=== PATIENT | male | born 1955 | race Caucasian/White ===

== ENCOUNTER 2019-11-09 14:28 | Outpatient (CLI) | payer MEDICARE, OTHER, SELFPAY ==
--- NOTE | 2019-11-09 14:44 | MR_ITS ---
WS: [id number] MRI HEAD WITH CONTRAST TECHNIQUE: Sagittal T1, T2 axial, T2 axial FLAIR, axial susceptibility weighted imaging, axial diffus ion weighted images, and coronal T2 images were obtained. Pre and post-T1 axial and post T1 coronal i mages. ADC and FSPGR images. CLINICAL INFORMATION: DIZZINESS COMPARISON: None. FINDINGS: No evidence of restricted diffusion to suggest acute ischemia. Ventricular system and basal cisterns are patent. Mild small vessel changes. Mild parenchymal volume loss. Normal posterior fossa. Normal v ascular flow voids at the skull base. No extra-axial fluid collections. Paranasal sinuses and mastoid air cells are well aerated. Normal optic chiasm and pituitary infundibulum. No hemosiderin on susceptibly weighted images. No abn ormal gadolinium enhancement. Normal dural venous sinuses. Visualized IACs are normal in appearance. No visualized IAC or CP angle mass. MR/MR head wo/w con [id number] IMPRESSION: 1. No evidence restricted diffusion to suggest acute ischemia. 2. Mild small vessel changes. Mild to moderate parenchymal volume loss. 3. Paranasal sinuses and mastoid air cells are well aerated. 4. No abnormal gadolinium enhancement. 5. Visualized IACs are normal in appearance. No CP angle mass. 6. No other significant findings.
== END 2019-11-09 14:29 | disposition home or self-care (01) ==
LOC: RADWPI 14:36
PROVIDERS: Family Provider Family Medicine; PCP Family Medicine; Visit Provider Family Medicine
DX: R42 Dizziness and giddiness (principal)
CPT/HCPCS: 70553; A9579

== ENCOUNTER → 2019-12-09 09:52 | Outpatient (BNVA) | payer MEDICARE, OTHER, SELFPAY | PROVIDERS: Family Provider Family Medicine; PCP Family Medicine; Referring Provider Family Medicine; Visit Provider Urology | DX: N41.1 Chronic prostatitis (principal); N40.1 Benign prostatic hyperplasia with lower urinary tract symptoms; N53.14 Retrograde ejaculation | CPT/HCPCS: 81001 ==

== ENCOUNTER 2023-09-03 12:35 | Outpatient (CLI) | payer MEDICARE, SELFPAY ==
--- NOTE | 2023-09-03 | ECG_ITS ---
[facility] Test Date: 2023-09-03 Pat Name: Scout Nunez Department: Room: Gender: Male Workforce Planner: Mila David : 1955 Requested By: Gilson Warner Order Number: [id number] Kelly MD: Adelso Conley M.D. Interpretive Statements NAME OF STUDY: TREADMILL STRESS TEST INDICATION: [Chest Pain, ] EXERCISE DATA: The patient was exercised by Guy protocol. Baseline heart rate was 67 beats per minute. Baseline blood pressure was 136/69 millimeters of mercury. Maximal predicted heart rate was 153 beats per minute. Maximum heart rate achieved was 141, which was 92% of the maximum predicted heart rate. Maximum blood pressure was 155/84 millimeters of mercury. Total exercise time was 6 minutes. Maximum METs achieved was 7. The reason for ending the test was maximal effort achieved. The patient complained of chest pain and shortness of breath during the stress test, which then resolved at the end of the test. ELECTROCARDIOGRAM: BASELINE: Showed sinus rhythm, normal axis, no significant ST-T changes at the baseline noted. [] EXERCISE: At the peak exercise level, [] horizontal 1-[address] depressions seen in leads V3-V5. [] RECOVERY: During the recovery period, heart rate dropped appropriately. PVCs were noted. [] CONCLUSION: 1. Exercise capacity is fair 2. Heart rate response was appropriate 3. Blood pressure response was appropriate 4. Symptoms of chest pain and shortness of breath during exercise 5. Stress test is abnormal with 1-2mm ST depressions seen on leads V3-V5. Blanchard score of -5 consistent with moderate risk stress test. Electronically Signed On 09-09-2023 7:42:29 CDT by Adelso Conley M.D. [email or web address]
[2023-09-03 13:40] VITALS: BMI 29.5
[2023-09-03 14:05] VITALS: BP 132/78; PULSE 97
== END 2023-09-03 12:36 | disposition home or self-care (01) ==
PROVIDERS: PCP Family Medicine; Visit Provider Family Medicine
DX: R07.9 Chest pain, unspecified (principal); R06.02 Shortness of breath; R94.39 Abnormal result of other cardiovascular function study
CPT/HCPCS: 93017

== ENCOUNTER → 2023-09-18 13:21 | Outpatient (BNVA) | payer MEDICARE, SELFPAY | PROVIDERS: PCP Family Medicine; Referring Provider Family Medicine; Visit Provider Internal Medicine Cardiovascular Disease | DX: R07.1 Chest pain on breathing (principal); R94.39 Abnormal result of other cardiovascular function study; I10 Essential (primary) hypertension; E78.5 Hyperlipidemia, unspecified; Z87.891 Personal history of nicotine dependence | CPT/HCPCS: 99205 ==

== ENCOUNTER 2023-09-24 10:15 | Outpatient (CLI) | payer MEDICARE, SELFPAY ==
[2023-09-24 10:35] LABS: Basophils % 0.3 %; Eosinophils # 0.1 10^3/uL (0.0-0.8); Eosinophils % 1.8 %; Hematocrit 39.6 % (37-53); Lymphocytes # 1.6 10^3/uL (0.8-4.8); Lymphocytes % 20.5 %; Mean Corpuscular HGB Conc 33.1 g/dL (30-55); Mean Corpuscular Hemoglobin 29.9 pg (27-33); Mean Corpuscular Volume 90.4 fl (82-101); Mean Platelet Volume 9.6 fL (7.4-10.4); Monocytes # 0.5 10^3/uL (0.2-0.9); Monocytes % 6.4 %; Neutrophils # 5.46 10^3/uL (1.8-7.7); Neutrophils % 70.7 %; Nucleated Red Blood Cells % 0 %; Platelet Count 263 10^3/cmm (157-399); Red Blood Count 4.38 10^6/uL (3.85-5.65); Red Cell Distribution Width 12.3 % (12.1-15.1); White Blood Count 7.71 10^3/uL (3.29-11.43)
[2023-09-24 10:48] LABS: INR 1.04 (0.8-1.2)
[2023-09-24 10:52] LABS: Anion Gap 14.2 (5-19); Blood Urea Nitrogen 19 mg/dL (8-23); Calcium 8.9 mg/dL (8.5-10.5); Carbon Dioxide 23 mmol/L (22-29); Chloride 108 mmol/L (98-107); Glomerular Filtration Rate 74.5 mL/min (90-130); Glucose 98 mg/dL (65-115); Osmolality Calculated 294 mOsm/kg (285-295); Potassium 4.2 mmol/L (3.5-5.1); Sodium 141 mmol/L (136-145)
== END 2023-09-24 10:16 | disposition home or self-care (01) ==
LOC: LAB 10:18
PROVIDERS: PCP Family Medicine; Visit Provider Internal Medicine Cardiovascular Disease
DX: R06.02 Shortness of breath (principal); Z79.01 Long term (current) use of anticoagulants; I25.118 Atherosclerotic heart disease of native coronary artery with other forms of angina pectoris; I48.91 Unspecified atrial fibrillation
CPT/HCPCS: 36415; 80048; 85025; 85610; 86850; 86900

== ENCOUNTER 2023-10-01 07:28 | Outpatient (CLI) | payer MEDICARE, SELFPAY ==
[2023-10-01] VITALS (25 sets, daily range): BP systolic 115–143; BP diastolic 58–80; PULSE 56–95; RESP 11–25; TEMP 36.8–36.9; O2SAT 94–99; BMI 29.5
--- NOTE | 2023-10-01 07:30 | XACV_ITS ---
Exam Room: 2 Ht: 175 cm Wt: 91 kg BSA: 2.12 m2 Gender: Male : 1955 Exam Priority: Routine Procedure(s): Procedure Description: Diagnostic procedure Procedure Description: PCI procedure Procedure Description: Left Heart Catheterization Procedure Description: Left ventriculography Procedure Description: Drug Eluting Coronary Stent Procedure Description: PTCA Procedure Description: Coronary Angiography Valeriy WHITLEY; Diagnostic Cath Status: Elective Diagnostic Findings * The left main is a medium caliber short vessel with no significant stenotic lesions. * The left anterior descending artery is a medium caliber vessel which appears to wrap around the LV apex minimally. Near the ostium, there is a 30% narrowing in the artery. The mid LAD was found to have 20 to 30% diffuse irregular narrowing. No other significant stenotic lesions were noted. The artery gives off multiple small diagonal branches. The first and second diagonal branches are found to have around 50-60% ostial narrowing. The third diagonal branch was found to have around 40% ostial narrowing. No other significant stenotic lesions were noted.. * The intermedius artery was found to be totally occluded proximally. There was minimal right left collaterals, filling of the distal segment of this artery, seen during the right coronary injection. * The left circumflex artery is a medium caliber nondominant vessel with a minimal ostial narrowing. No other significant stenotic lesions were noted. * The right coronary artery is a medium caliber dominant vessel which was found to have a high posterior takeoff. Minimal intimal irregularities are noted in the midsegment. No significant stenotic lesions were noted. PCI Status: Elective PCI LVEF Assessed: Yes PCI Indication: New Onset Angina <= 2 months Interventional Findings * The ramus intermedius is occluded. It appears there is some thrombus in the proximal portion. There was also some collaterals noted from the right coronary artery. There is a 60% stenosis of the proximal LAD. A wire was easily placed into the ramus and subsequently balloon angioplasty performed on the ramus intermedius. It was then stented with a 2.25 x 30 mm stent. This provided an excellent angiographic result. There was some slight worsening of the lesion in the LAD after the ramus stent was placed. Decision for PCI with Surgical Consult: No PCI for Multi-vessel Disease: No Conclusions 1. 67-year-old white male with history of hypertension, dyslipidemia, is present with complaints of chest pain and dyspnea on exertion along with generalized weakness. Abnormal stress test suggesting inferolateral wall ischemia. In view of the patient's ongoing symptoms with a significant functional limitations, in order to further evaluate his coronary status, a cardiac on exertion was recommended. Patient underwent left heart catheterization with left and right coronary angiogram and LV angiogram today. The findings are as follows. 2. Total occlusion of the intermedius artery proximally with faint right to left collaterals. Mild diffuse disease the other vessels. Diminished LV ejection fraction of 45%. LVEDP of 17 mmHg. Moderate hypokinesia of the mid and apical anterior and apical inferior wall segments. 3. I reviewed and discussed the cardiac catheterization data with the Dr. Silver. It was thought to be appropriate to consider PCI of the intermedius artery lesion. Dr. Silver took cover further management of this patient at this point. Diagnostic RX Recommendation: PCI w/o planned CABG Ventriculography Ejection Fraction: 45.0 % LV EDP: 17 mmHg Left Ventriculography Findings: * The LV gram was performed in the WATSON projection. There is moderate hypokinesia of the mid and apical anterior and apical inferior wall segments. LV ejection fraction was around 45%. The LVEDP was 17 mmHg. Pressures Phase:Rest AO : 99 / 55 ( 72 ) @ 9:46:00 AM 76 / 59 ( 68 ) @ 9:48:00 AM 80 / 61 ( 70 ) @ 9:51:00 AM 106 / 52 ( 73 ) @ 10:01:00 AM 107 / 53 ( 74 ) @ 10:01:00 AM 145 / 74 ( 90 ) @ 10:03:00 AM 89 / 53 ( 72 ) @ 10:21:00 AM 89 / 66 ( 76 ) @ 10:25:00 AM LV : 114 / -4 / 17 @ 10:00:00 AM 113 / -2 / 18 @ 10:01:00 AM 113 / -3 / 17 @ 10:01:00 AM Valves Phase:DefaultPhase AV : 13.0 @ 9:40:28 AM AV Mean Gradient: 7.0 @ 9:40:28 AM Clinical Evaluation EBL: 5mL-10mL Procedural Details Procedure Consent Obtained. Pre-Procedure Time Out. Identified patient by full name and date of as verbalized by the patient/guarantor. Does the consent match the physician's order: Yes. Accurate & Complete Informed Consent: Yes. Inpatient/Outpatient History & Physical on Chart: Yes. If H&P is completed, is and addenduem needed: No; If yes, is the addendum complete: N/A. Relevant Radiology Images available: Yes. Visualize and Verify Site with Patient/Guarantor: N/A. Pre-op teaching completed and patient verbalized understanding. The risks, benefits, and alternatives of sedation and/or procedure were discussed by physician. The patient agrees to continue. Procedure started. Current Diagnosis : Chest Pain. [facility] Clinical Fraility Score: 3: Managing Well. Discount Clerk Indications: Worsening Angina. Chest Pain Symptom Assessment: Typical Angina Symptoms. Correct patient, site and procedure confirmed by cath team. Current diagnosis: Chest Pain. PERRLA. Strong, equal hand editing internship bilaterally. Lungs clear x 5 lobes. IV Site on Arrival: 20 gauge in the left anticubital. IV Fluids: 0.9% NaCl at KVO. 0 mL infused prior to labor law professor. Pre Procedural Pulses: right radial was 3+. Oxygen started at 2liters/min via nasal canula. right groin was prepped with chloroprep then draped in the usual sterile fashion. right radial was prepped with chloroprep then draped in the usual sterile fashion. Physician notified. Baseline sample Acquired. HR: 80 BPM. Physician arrived. Physician scrubbed in. Immediate Pre-Procedure Time Out. Correct Patient: Yes; Correct Procedure: Yes; Correct Site: Yes; Correct Patient Position: Yes; Correct Supplies: Yes; Dried Flammable Prep: Yes; Blood Products Available: N/A;. Lidocaine 1% infiltrated to the right radial. Arterial access obtained. A 5 martiniquais Theron catheter in over wire. Multiple views taken of left coronary artery. Catheter redirected to the RCA. Catheter removed over the exchange wire. A 5 martiniquais JR4 catheter in over wire. Multiple views taken of right coronary artery. Dr. Silver called to review films. Catheter removed over the exchange wire. A 5 martiniquais Angled Pig catheter in over wire. EDP Sample taken: LV 114/-5,17; HR: 72 BPM; SpO2: 96%. Dr. Silver arrived. LV gram performed in WATSON @ 10 mL/second for a total of 30 mL. EDP Sample taken: LV 113/-3,18; HR: 73 BPM; SpO2: 96%. Pullback taken: LV 113/-4,17; AO 106/52(73); Mean: 7mmHg, Peak to Peak: 13mmHg, SEP: 22sec/min; HR: 72 BPM; SpO2: 96%. Physician review of cine films. Catheter attached to Heparnized Saline flush at KVO to maintain patency. Dr. Crooks scrubbed out. Dr. Silver scrubbed in. Catheter removed over the exchange wire. 6 martiniquais XB 3.5 guide catheter was inserted over the wire. [place]ucl[place] guidewire was advanced through the guide catheter to lesion in the Ramus. Inflation number : 1 A AB TREK 2.50X12 RX BALLOON was prepped and advanced across the Ramus , then inflated to 8 SAMIA for 0:20 seconds. Results checked. Balloon out. Inflation Number : 2 A ONUR Banegas RIYA 2.25X30 MARAH -Lot Number# [id number] EXP: 03/03/2026 was prepped and advanced across the Ramus. The stent was deployed at 12 SAMIA for 0:25 seconds. Stent balloon out over wire. Results checked. Wire out. Results checked. Guide catheter out. A TR Band was successful obtaining hemostatsis at the Right Radial artery insertion site. Vital chart was stopped. Post Procedure: Pulses reassessed and unchanged. PERRLA. Strong, equal hand editing internship bilaterally. No VTE prophylaxis required. Medication's Wasted: Lidocaine 1% = 18 mL. Medication's Wasted: Heparin = 1000 units. Medication's Wasted: Nitro = 49.8 mcg. Medication's Wasted: Other = Versed 1 mg. Total IV fluids: 300 mL. Post-op diagnosis: Stent to the Ramus. Complications: None. Estimated blood loss: 5mL-10mL. Responsiveness - Normal response to verbal stimuli; alert and oriented, PERRLA. Airway - Unaffected, no intervention required; spontaneous ventilation. Circulation: W/N/L, pulses unchanged. Nausea/Vomiting: No. Procedure completed. Patient transferred by wheelchair to CPRU. Access Site Site: Right Radial artery Sheath Size: 6 Fr Hemostasis Method: TR Band Hemostasis Success: Successful Procedure Medications Start: 8:31 AM Stop: 8:31 AM Medication: Fentanyl Amount: 50 mcg Route: I.V. Start: 8:35 AM Stop: 8:35 AM Medication: Versed Amount: 1 mg Route: I.V. Start: 8:40 AM Stop: 8:40 AM Medication: Versed Amount: 1 mg Route: I.V. Start: 8:42 AM Stop: 8:42 AM Medication: Verapamil Amount: 5 mg Route: I.A. Start: 8:42 AM Stop: 8:42 AM Medication: Nitrogylcerin Amount: 200 mcg Route: I.A. Start: 8:42 AM Stop: 8:42 AM Medication: 0.9% Saline Amount: 250 ml Route: I.V. bolus Start: 8:57 AM Stop: 8:57 AM Medication: Fentanyl Amount: 25 mcg Route: I.V. Start: 8:50 AM Stop: 8:50 AM Medication: Heparin Amount: 5000 units Route: I.V. Start: 9:13 AM Stop: 9:13 AM Medication: Versed Amount: 1 mg Route: I.V. Start: 9:29 AM Stop: 9:29 AM Medication: Fentanyl Amount: 25 mcg Route: I.V. Start: 9:31 AM Stop: 9:31 AM Medication: Plavix Amount: 600 mg Route: P.O. I, the attending physician, have reviewed and verified all procedure medications. Yes, all medications given per verbal order History/Risk Factors Hypertension: Yes Dyslipidemia: Yes Peripheral Arterial Disease (PAD): No Myocardial Infarction (NH): No Obesity: No Renal Disease: No Tobacco Use: Former Prior Interventions PCI: No CABG: No Valve Surgery: No Report Signatures Diagnostic Workflow Finalized by Dr Carmita Crooks MD [facility] on 10/01/2023 10:15 AM Interventional Workflow Finalized by Dr. Loi Silver MD on 10/01/2023 09:46 AM
[2023-10-01] MEDS: diphenhydrAMINE 50 mg Capsule PO (08:04)
[2023-10-01] MEDS: aspirin 325 mg Tablet PO (08:04)
--- NOTE | 2023-10-01 08:15 | W.PM.OPSUD ---
Surgery/Procedure H&P Update DATE OF PROCEDURE: October 01, 2023 DATE H&P PERFORMED: 09/18/23 H&P UPDATE INFORMATION: I have reviewed H&P completed within last 30 days, I have examined patient prior to procedure and No changes to prior documentation PREOP DIAGNOSIS: Suspected CAD PRIMARY INDICATION FOR PROCEDURE: History of hypertension, dyslipidemia, presenting with chest pain and abnormal treadmill exercise stress test. PLANNED PROCEDURE: Operation Date: 10/01/23 08:30 Proposed Procedures p Cardiac Catheterization 62772, R94.39, R07.1(Left) - Carmita Crooks MD PATIENT REASSESSED PRIOR TO SEDATION, WITH NO CHANGE NOTED: Yes PHYSICAL EXAM: alert, oriented x 3, clear to auscultation bilaterally and regular rate & rhythm AIRWAY EVAL/ANESTHESIA PLAN: normal airway, see other exam findings, ASA III, Monitored Anesthesia, Local Anesthesia, Risks, benefits & alternatives of sedation and/or procedure discussed and Patient agrees to continue as planned
--- NOTE | 2023-10-01 09:41 | SUR.PHASEI ---
POST CATH NOTE Received patient from laborer powerhouse. Status post cardiac cateterization/PCI of ramus intermedius artery. Vitals and assessments per flowsheet. Radial band in place. Site is hemostatic and free of hematoma or bleeding. Verbal post cath instctions went over with the patient and the family. They understood well. Call light in place. Informed to call for needs.
--- NOTE | 2023-10-01 10:00 | SUR.PHASEI ---
post cath fluids set at 100 ml/hr post cath per verbal order from dr martinez. Noted.
[2023-10-01] MEDS: sodium chloride 0.9% 1,000 ML 100 ML IV ×2 (11:27→15:23)
--- NOTE | 2023-10-01 13:37 | PC.NURSE ---
received from cardiac center medical and lab director at 1115.report received.pt is alert and awake and oriented x 4.denies pain at present.sr/sb on monitor.right radial tr band on and inflated.right hand is warm to touch and with brisk capillary refill.palpable radial pulse is noted distal to tr band.no hematoma noted.pt instructed in activity restrictions s/p radial artery procedure..and instructed to notify staff for any bleeding,pain,numbness...or for any concerns at all.pt verb understanding of instructions.
[2023-10-02 03:00] VITALS: BP 166/86; PULSE 62; RESP 14; TEMP 36.2; O2SAT 99
[2023-10-02 07:22] VITALS: TEMP 36.2
[2023-10-02 07:57] VITALS: PULSE 66; RESP 16
[2023-10-02] MEDS: gabapentin 300 mg Capsule 600 MG PO (08:17)
[2023-10-02] MEDS: dutasteride 0.5 mg Capsule PO (08:18)
[2023-10-02] MEDS: tamsulosin 0.4 mg Capsule 0.400000000000000022 MG PO (08:18)
[2023-10-02] MEDS: aspirin 81 mg EC Tablet PO (08:18)
[2023-10-02] MEDS: pantoprazole DR 40 mg Tablet PO (08:18)
[2023-10-02] MEDS: baclofen 10 mg Tablet PO (08:18)
[2023-10-02 08:20] VITALS: BP 166/86
[2023-10-02] MEDS: TRAMadol 50 mg Tablet PO (08:20)
[2023-10-02] MEDS: losartan 50 mg Tablet 100 MG PO (08:20)
[2023-10-02] MEDS: amlodipine 5 mg Tablet PO (08:20)
[2023-10-02] MEDS: clopidogrel 75 mg Tablet PO (08:20)
[2023-10-02] MEDS: atorvastatin 40 mg Tablet 20 MG PO (08:21)
--- NOTE | 2023-10-02 09:07 | PM.PN ---
Subjective Subjective: Patient is admitted to hospital following the intervention of the ramus intermedius artery. Patient remained stable throughout the hospital course. No chest pain. Vital signs remained stable. Medications: Medication Review Details: Current Medications Albuterol Sulfate (Albuterol 2.5 Mg/3 Ml Neb) 2.5 mg INHALATION Q6H PRN PRN Reason: Shortness Of Breath Or Wheezing Amlodipine Besylate (Amlodipine 5 Mg Tablet) 5 mg PO DAILY [facility] Last Admin: 10/02/23 08:20 Dose: 5 mg Aspirin (Aspirin 81 Mg Ec Tablet) 81 mg PO DAILY [facility] Last Admin: 10/02/23 08:18 Dose: 81 mg Atorvastatin Calcium (Atorvastatin 40 Mg Tablet) 20 mg PO DAILY [facility] Last Admin: 10/02/23 08:21 Dose: 20 mg Baclofen (Baclofen 10 Mg Tablet) 10 mg PO DAILY [facility] Last Admin: 10/02/23 08:18 Dose: 10 mg Clopidogrel Bisulfate (Clopidogrel 75 Mg Tablet) 75 mg PO DAILY [facility] Last Admin: 10/02/23 08:20 Dose: 75 mg Dutasteride (Dutasteride 0.5 Mg Capsule) 0.5 mg PO DAILY [facility] Last Admin: 10/02/23 08:18 Dose: 0.5 mg Gabapentin (Gabapentin 300 Mg Capsule) 600 mg PO DAILY [facility] Last Admin: 10/02/23 08:17 Dose: 600 mg Sodium Chloride (Sodium Chloride 0.9%) 1,000 mls @ 100 mls/hr IV .Q10H [facility] Last Admin: 10/02/23 05:06 Dose: Not Given Sodium Chloride (Sodium Chloride 0.9%) 1,000 mls @ 100 mls/hr IV .Q10H [facility] Last Admin: 10/01/23 15:23 Dose: Not Given Losartan Potassium (Losartan 50 Mg Tablet) 100 mg PO DAILY [facility] Last Admin: 10/02/23 08:20 Dose: 100 mg Nitroglycerin (Nitroglycerin 0.4 Mg Sublingual Tablet) 0.4 mg SUBLINGUAL Q5M PRN PRN Reason: chest pain Non-Formulary Medication (Fenofibrate Micronized) 67 mg PO DAILY [facility] Last Admin: 10/02/23 08:21 Dose: Not Given Pantoprazole Sodium (Pantoprazole Dr 40 Mg Tablet) 40 mg PO DAILY [facility] Last Admin: 10/02/23 08:18 Dose: 40 mg Tamsulosin HCl (Tamsulosin 0.4 Mg Capsule) 0.4 mg PO DAILY [facility] Last Admin: 10/02/23 08:18 Dose: 0.4 mg Tramadol HCl (Tramadol 50 Mg Tablet) 50 mg PO DAILY [facility] Last Admin: 10/02/23 08:20 Dose: 50 mg Vitals/I&O/Wt Last Vital Signs Temp 97.2 F L 10/02/23 07:22 Pulse 66 10/02/23 07:57 Resp 16 10/02/23 07:57 BP 166/86 10/02/23 08:20 Pulse Ox 99 10/02/23 03:00 O2 Del Method Room Air 10/02/23 07:57 O2 Flow Rate 95 10/02/23 07:57 10/01/23 10/02/23 10/02/23 22:59 06:59 14:59 Intake Total 873.333 / 4980.195 7499 / 2593.333 Balance 873.333 / 5983.250 2328 / 2593.333 Weight last 48 hrs Weight 203 lb 14.4 oz Weight 203 lb 9 oz Weight 200 lb Physical Exam Narrative: GENERAL: The patient is alert and oriented times three. Not in any acute distress. HEENT: No significant pallor, icterus or lymphadenopathy.Oral cavity: There are no mucous membrane lesions. NECK: Trachea appears to be central. No masses noted. No JVD or thyromegaly appreciated. RESPIRATORY: Chest is symmetrical. No intercostals muscle retraction or any accessory muscle activation. There is no chest wall tenderness. Breath sounds are heard bilaterally. No rales or rhonchi heard. No evidence of any consolidation. BREASTS: Deferred. HEART: The heart sounds are normal. No S3 or S4. No significant murmurs. No pericardial rub ABDOMEN: No vessel pulsations or distention. No tenderness. No organomegaly appreciated. Bowel sounds are normally heard. : Deferred. RECTAL: Deferred. LYMPHATIC: No lymphadenopathy noted in the neck. EXTREMITIES: No edema or cyanosis. No clubbing. MUSCULOSKELETAL: No acute joint deformities or swelling SKIN: There are no significant rashes or ecchymosis NEUROPSYCHIATRIC: The patient is alert and oriented x3. Appears to be in a good mood. No tremors or rigidity noted. Data 10/02/23 08:50 Other Labs: Laboratory Last Values Sodium 141 mmol/L (136-145) 10/02/23 08:50 Potassium 3.8 mmol/L (3.5-5.1) 10/02/23 08:50 Chloride 105 mmol/L (98-107) 10/02/23 08:50 Carbon Dioxide 27 mmol/L (22-29) 10/02/23 08:50 Anion Gap 12.8 (5-19) 10/02/23 08:50 BUN 8 mg/dL (8-23) 10/02/23 08:50 Creatinine 1.1 mg/dL (0.7-1.2) 10/02/23 08:50 GFR Calculation 66.8 mL/min (90-130) L 10/02/23 08:50 Glucose 87 mg/dL (65-115) 10/02/23 08:50 Calculated Osmolality 290 mOsm/kg (285-295) 10/02/23 08:50 Calcium 9.1 mg/dL (8.5-10.5) 10/02/23 08:50 A&P Assessment and plan (1) Atherosclerotic heart disease of [place] coronary artery with other forms of angina pectoris: Patient was found to have total occlusion of the intermedius artery with mild to moderate diffuse disease in the other vessels. The intermedius artery was intervened. Excellent results were obtained. Patient remained stable throughout the rest of the hospital course. (2) Benign hypertension: Blood pressure was elevated. Medications were adjusted. (3) Dyslipidemia: Continue on the current medications. Plan Patient is being discharged home today. He will be seen in the clinic in a week. Importance of lifestyle modification, compliance with diet and exercise, etc. were discussed. The option of doing a cardiac rehab also was discussed. After being seen in the office in a week, further management decisions will be made Attestations Medical Necessity Statement*: Discharge home today Coding Level of Care Code 28441 Diagnoses Atherosclerotic heart disease of [place] coronary artery with other forms of angina pectoris I25.118 Benign hypertension I10 Dyslipidemia E78.5
[2023-10-02 09:17] LABS: Anion Gap 12.8 (5-19); Blood Urea Nitrogen 8 mg/dL (8-23); Calcium 9.1 mg/dL (8.5-10.5); Carbon Dioxide 27 mmol/L (22-29); Chloride 105 mmol/L (98-107); Glomerular Filtration Rate 66.8 mL/min (90-130); Glucose 87 mg/dL (65-115); Osmolality Calculated 290 mOsm/kg (285-295); Potassium 3.8 mmol/L (3.5-5.1); Sodium 141 mmol/L (136-145)
--- NOTE | 2023-10-02 11:36 | PC.NURSE ---
Discharge Note Patient discharged to home via POV accompanied by family. Discharge instructions reviewed with patient and/or videotape sales representative. Mobile pharmacy medications and/or prescriptions provided. Belongings/home medications returned.
== END 2023-10-02 10:45 | disposition home or self-care (01) ==
LOC: CCL 07:29 → ICU 10-02 07:20
PROVIDERS: Internal Medicine Cardiovascular Disease; PCP Family Medicine; Visit Provider Internal Medicine Cardiovascular Disease
DX: I25.118 Atherosclerotic heart disease of native coronary artery with other forms of angina pectoris (principal); I25.82 Chronic total occlusion of coronary artery; I10 Essential (primary) hypertension; E78.5 Hyperlipidemia, unspecified; Z87.891 Personal history of nicotine dependence; N40.1 Benign prostatic hyperplasia with lower urinary tract symptoms; N13.8 Other obstructive and reflux uropathy
CPT/HCPCS: 36415; 80048; 93458; 96374; 96375; 99152; 99153; C1725; C1769; C1874; C1887; C1894; C9600; J1644; J2250; J3010; J3490; J7030; Q0163; Q9967

== ENCOUNTER 2023-10-15 09:03 | Outpatient (CLI) | payer MEDICARE, SELFPAY ==
--- NOTE | 2023-10-15 09:15 | USCV_ITS ---
Scout Nunez Age: 67 Gender: M : 1955 Exam Date: 10/15/2023 09:20 Ordering Phys: Carmita Crooks MD ([email or web address]) Technologist: CT [place]am [place] [facility] [place]ication: cp/sob BP: 110 / 70 HR: 69 Rhythm: Sinus Technical Quality: Adequate MEASUREMENTS (Male / Female) Normal Values 2D ECHO LVOT Diameter 2.1 cm LV Ejection Fraction MOD 4C 73.7 % LV Ejection Fraction MOD 2C 63.5 % LV Ejection Fraction 2C AL 64.9 % LA Diameter 3.5 cm RA Systolic Volume 4C AL 40.6 ml RA Systolic Volume 4C MOD 35.5 ml LA Sys Volume AL 49.0 cm cubed LA Sys Volume Index AL 23.1 cm cubed/m squared Aorta at Sinotubular Diameter 2.4 cm M-MODE LA Ao Ratio MM 1.4 AV Cusp Separation MM 2.1 cm DOPPLER AV Peak Velocity 105.0 cm/s LVOT Peak Velocity 93.0 cm/s AV Area Cont Eq vti 3.8 cm squared AV Area Cont Eq pk 3.2 cm squared MV Peak Velocity 102.0 cm/s MV Area PHT 2.8 cm squared Mitral E to A Ratio 0.7 TV Peak Velocity 143.0 cm/s TR Peak Velocity 201.0 cm/s TR Peak Gradient 16.2 mmHg TV Peak E Velocity 66.0 cm/s Right Atrial Pressure 3.0 mmHg Pulmonary Artery Systolic Pressu 19.2 mmHg PV Peak Velocity 104.5 cm/s FINDINGS Left Ventricle Normal LV size ejection fraction of 65%. Mild hypokinesis of the anteroapical region. Grade I/IV diastolic dysfunction (abnormal relaxation filling pattern), normal to mildly elevated filling pressures. Right Ventricle The right ventricle is normal in size and function. Right Atrium The right atrium is normal in size. Left Atrium The left atrium is normal in size. Mitral Valve Mild mitral valve regurgitation. Aortic Valve No gross abnormalities noted Tricuspid Valve No gross abnormalities noted Pulmonic Valve No gross abnormalities noted Pericardium Normal pericardium without effusion. Aorta Normal ascending aorta dimension. IVC The inferior vena cava appears normal. CONCLUSIONS Normal LV size ejection fraction of 65%. Mild hypokinesis of the anteroapical region. Grade I/IV diastolic dysfunction (abnormal relaxation filling pattern), normal to mildly elevated filling pressures. Mild mitral valve regurgitation. There is no pericardial effusion. There are no intracardiac masses. Compared to the previous study from 09/02/2015, the wall motion abnormality appears to be new Dr Carmita Crooks MD [facility] (Electronically Signed) Final Date: 18 October 2023 20:57 S
== END 2023-10-15 09:04 | disposition home or self-care (01) ==
LOC: RAD 09:04
PROVIDERS: PCP Family Medicine; Visit Provider Internal Medicine Cardiovascular Disease
DX: R06.09 Other forms of dyspnea (principal); I50.30 Unspecified diastolic (congestive) heart failure
CPT/HCPCS: 93306

== ENCOUNTER 2023-10-17 16:59 | Observation (INO) | payer MEDICARE, SELFPAY ==
--- NOTE | 2023-10-17 16:59 | ECG_ITS ---
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 Measurements Intervals [place] Rate: 62 P: 63 MI: 141 QRS: -16 QRSD: 117 T: 132 QT: 398 QTc: 406 Interpretive Statements SINUS RHYTHM POSSIBLE LATERAL MYOCARDIAL INFARCTION , OF INDETERMINATE AGE [30 ms Q WAVE IN I/aVL/V5/V6] Diffuse nonspecific T wave changes No previous ECG available for comparison Electronically Signed On 10-17-2023 23:25:30 CDT by Carmita Crooks M.D. [id number]
[2023-10-17 17:04] VITALS: BP 135/74; PULSE 65; RESP 18; TEMP 36.7; O2SAT 95
--- NOTE | 2023-10-17 17:29 | XRR_ITS ---
PROCEDURE INFORMATION: Exam: XR Chest Exam date and time: 10/17/2023 5:45 PM Age: 67 years old Clinical indication: Shortness of breath; Prior surgery; Surgery date: 1-6 months; Surgery type: Heart stent; Additional info: Chest pain TECHNIQUE: Imaging protocol: Radiologic exam of the chest. Views: 1 view. COMPARISON: CT angio chest PE protcl [id number] 06/07/2017 11:48 AM FINDINGS: Lungs: Atelectasis in the left lung base. The lungs are otherwise clear. Pleural spaces: Unremarkable. No pleural effusion. No pneumothorax. Heart/Mediastinum: Unremarkable. No cardiomegaly. Diaphragm: Stable elevation of the right diaphragm. Bones/joints: Anchors in the proximal humeri. Old left rib fracture. No acute fracture. Other findings: Shallow inspiration. XR/XR chest 1V portable [id number] IMPRESSION: No acute findings.
--- NOTE | 2023-10-17 17:35 | ED_ITS ---
Documented by User: Jorge Vick DO 10/18/23 06:03 HPI - Chest Pain 2 General: Chief Complaint: Chest Pain Stated Complaint: Light Chest Pain and Pressure Time Seen by Provider: 10/17/23 17:29 Source: patient Mode of arrival: ambulatory History of Present Illness: 67-year-old male presents emergency room complaining of what he describes as chest pressure. He had it throughout the day today it is increasing in intensity he has had it intermittently last couple of weeks since he had a stent placed 2 weeks ago has really associated he exacerbating or relieving factors. He states he is very active and busy yesterday did not have any chest pressure while he was active but towards the end of the day states he felt very wiped out. He had had some other less intense episodes of chest pressure prior to this. He denies any fever sweats chills cough nausea vomiting or diarrhea. MD complaint: chest pain Pertinent past history: coronary artery disease and prior [place] Timing of current episode: episodic Onset: during rest Pain location: substernal Associated symptoms: Deny abdominal pain, diaphoresis, dyspnea, fever(s), leg edema, nausea, palpitations, sense of impending doom, syncope or vomiting Review of Systems 2 Const: Denies: fever(s), chills or diaphoresis Card: Reports: chest pain (Chest pressure per the patient) and dyspnea on exertion; Denies: palpitations, edema, swelling of feet/ankles, syncope or orthopnea Resp: Denies: dyspnea GI: Denies: abdominal pain, nausea or vomiting : Denies: dysuria, urinary frequency or urinary urgency Musc: Denies: neck pain or back pain Skin/Breast: Denies: rash PFSH ED 2 PFSH: Medical History (Updated 10/17/23 @ 21:40 by Trenton De La Cruz MD) Insomnia DDD (degenerative disc disease), lumbar Obstructive chronic bronchitis without exacerbation Hyperlipidemia BPH loc w urin obs/LUTS Eczema Inflammatory arthritis Surgical History History of back surgery H/O shoulder surgery Family History Mother Diabetes Father Diabetes Social History Smoking and tobacco/nicotine status: former use of tobacco/nicotine Alcohol intake: unknown Substance/Drug Use: unknown Adopted: No Caregiver/support person: No Lives independently: No Household members: spouse Marital status: Current occupational status: employed Physical Exam 2 Const: COMMON NORMALS: no acute distress GENERAL APPEARANCE: cooperative and comfortable ORIENTATION/CONSCIOUSNESS: Yes awake, Yes oriented to person, Yes oriented to place and Yes oriented to time HENMT: COMMON NORMALS: normocephalic, atraumatic and hearing grossly normal bilaterally HEAD & SCALP: normocephalic and atraumatic Resp: COMMON NORMALS: normal respiratory effort, No retractions, No use of accessory muscles and clear to auscultation bilaterally AUSCULTATION: clear to auscultation bilaterally Cardio: COMMON NORMALS: regular rate, regular rhythm and No murmurs present (Cardio) RATE: regular rate RHYTHM: regular rhythm GI: COMMON NORMALS: Soft to palpation and No hepatosplenomegaly present A USCULTATION: Yes normoactive bowel sounds PALPATION: Yes Soft to palpation, No Tenderness to palpation present (GI), No Guarding due to palpation present (GI) and Yes No hepatosplenomegaly present Extremity: COMMON NORMALS: normal to inspection, capillary refill normal, no clubbing, cyanosis or edema, no calf tenderness and no pedal edema Neuro: SENSORIUM/ORIENTATION: Yes oriented to person, Yes oriented to place and Yes oriented to time Skin: COMMON NORMALS: no rashes or lesions noted GENERAL SKIN EXAM: no rashes or lesions noted Course 2 Vital Signs: Vital signs: Vital Signs Temperature 97.4 F L 10/18/23 04:00 Pulse Rate 61 10/18/23 04:00 Respiratory Rate 17 10/18/23 04:00 Blood Pressure 128/69 10/18/23 04:00 Pulse Oximetry 97 10/18/23 04:00 Oxygen Delivery Me thod Room Air 10/18/23 04:00 MDM - Chest Pain Medical Decision Making Burlap Roll Coverer report reviewed patient had an intermediate artery off of the LAD. That artery was stented the rest of his diffuse nonocclusive disease which was not intervened on. The angiogram was scheduled was not precipitated by an event. Care signed out to Dr. Mora at change of shift. See final notes for diagnosis and disposition. Lab Data 10/17/23 17:56 10/17/23 17:56 Radiology Impressions Chest X-Ray 10/17/23 17:29 IMPRESSION: No acute findings. Laboratory Results WBC 6.00 10^3/uL (3.29-11.43) 10/17/23 17:56 RBC 4.30 10^6/uL (3.85-5.65) 10/17/23 17:56 Hgb 13.20 g/dL (11.27-16.99) 10/17/23 17:56 Hct 38.7 % (37-53) 10/17/23 17:56 MCV 90.0 fl (82-101) 10/17/23 17:56 MCH 30.7 pg (27-33) 10/17/23 17:56 MCHC 34.1 g/dL (30-55) 10/17/23 17:56 RDW 12.6 % (12.1-15.1) 10/17/23 17:56 Plt Count 262 10^3/cmm (157-399) 10/17/23 17:56 MPV 9.8 fL (7.4-10.4) 10/17/23 17:56 Neut % (Auto) 62.9 % 10/17/23 17:56 Lymph % (Auto) 25.8 % 10/17/23 17:56 [place] % (Auto) 8.5 % 10/17/23 17:56 Eos % (Auto) 2.0 % 10/17/23 17:56 Baso % (Auto) 0.5 % 10/17/23 17:56 Neut # (Auto) 3.77 10^3/uL (1.8-7.7) 10/17/23 17:56 Lymph # (Auto) 1.6 10^3/uL (0.8-4.8) 10/17/23 17:56 [place] # (Auto) 0.5 10^3/uL (0.2-0.9) 10/17/23 17:56 Eos # (Auto) 0.1 10^3/uL (0.0-0.8) 10/17/23 17:56 Baso # (Auto) 0.0 10^3/uL (0.0-0.1) 10/17/23 17:56 Nucleated RBC % (auto) 0 % 10/17/23 17:56 Nucleated RBCs # 0.0 /100WBC 10/17/23 17:56 D-Dimer 0.43 ug/mLFEU (0-0.59) 10/17/23 17:56 Sodium 141 mmol/L (136-145) 10/17/23 17:56 Potassium 3.9 mmol/L (3.5-5.1) 10/17/23 17:56 Chloride 108 mmol/L (98-107) H 10/17/23 17:56 Carbon Dioxide 24 mmol/L (22-29) 10/17/23 17:56 Anion Gap 12.9 (5-19) 10/17/23 17:56 BUN 11 mg/dL (8-23) 10/17/23 17:56 Creatinine 1.1 mg/dL (0.7-1.2) 10/17/23 17:56 GFR Calculation 66.8 mL/min (90-130) L 10/17/23 17:56 Glucose 86 mg/dL (65-115) 10/17/23 17:56 Calculated Osmolality 291 mOsm/kg (285-295) 10/17/23 17:56 Calcium 9.1 mg/dL (8.5-10.5) 10/17/23 17:56 Total Bilirubin 0.2 mg/dL (0.15-1.2) 10/17/23 17:56 AST 17 U/L (0-40) 10/17/23 17:56 ALT 15 U/L (0-41) 10/17/23 17:56 Alkaline Phosphatase 58 U/L (40-130) 10/17/23 17:56 Troponin T Baseline 28 ng/L (0-15) H 10/17/23 17:56 Troponin T 120 Minute 30.26 ng/L (0-15) H 10/17/23 19:43 Delta Troponin T 2.26 ABS# (0-10) 10/17/23 19:43 Total Protein 7.5 g/dL (6.6-8.7) 10/17/23 17:56 Albumin 4.4 g/dL (3.5-5.2) 10/17/23 17:56 Globulin 3.1 g/dL (1.3-4.6) 10/17/23 17:56 TSH 1.60 uIU/mL (0.27-4.20) 10/17/23 17:56 Discharge Plan Discharge Patient Disposition: Placed in Observation Admit Provider: Trenton De La Cruz Clinical Impression: Coronary artery disease Chest pain Qualifiers: Chest pain type: chest pain on breathing Qualified Code(s): R07.1 - Chest pain on breathing Coding Level of Care Code ED Computer Programming Supervisor for Chg Fwd Documented by User: Elidia Mora MD 10/17/23 20:43 HPI - Chest Pain 2 General: Chief Complaint: Chest Pain Stated Complaint: Light Chest Pain and Pressure Time Seen by Provider: 10/17/23 17:29 PFSH ED 2 PFSH: Medical History (Updated 10/17/23 @ 21:40 by Trenton De La Cruz MD) Insomnia DDD (degenerative disc disease), lumbar Obstructive chronic bronchitis without exacerbation Hyperlipidemia BPH loc w urin obs/LUTS Eczema Inflammatory arthritis Surgical History History of back surgery H/O shoulder surgery Family History Mother Diabetes Father Diabetes Social History Smoking and tobacco/nicotine status: former use of tobacco/nicotine Alcohol intake: unknown Substance/Drug Use: unknown Adopted: No Caregiver/support person: No Lives independently: No Household members: spouse Marital status: Current occupational status: employed Course 2 Vital Signs: Vital signs: Vital Signs Temperature 97.4 F L 10/18/23 04:00 Pulse Rate 61 10/18/23 04:00 Respiratory Rate 17 10/18/23 04:00 Blood Pressure 128/69 10/18/23 04:00 Pulse Oximetry 97 10/18/23 04:00 Oxygen Delivery Me thod Room Air 10/18/23 04:00 MDM - Chest Pain Medical Decision Making Burlap Roll Coverer report reviewed patient had an intermediate artery off of the LAD. That artery was stented the rest of his diffuse nonocclusive disease which was not intervened on. The angiogram was scheduled was not precipitated by an event. Care signed out to Dr. Mora at change of shift. See final notes for diagnosis and disposition. Lab review: Serial cardiac markers are just mildly elevated and not a significant delta. Lab work otherwise is fairly unremarkable. No leukocytosis. No anemia. No renal failure. Chest x-ray: No acute process. No infiltrate. No pneumothorax. This was reviewed and interpreted by myself the ER physician. Repeat EK PM. Rate 53. Normal sinus rhythm, No ST-T changes, no ectopy, normal MA & QRS intervals, This was reviewed and interpreted by myself the ER physician at 2001. Consultation. I spoke with Dr. Crooks with cardiology. Given the patient's concern and continued mild chest discomfort he agrees that admission is agreeable Consultation: I spoke with Dr. De La Cruz with the hospitalist service who agrees to admission Assessment and plan: Chest pain Coronary artery disease -I discussed the patient with the hospitalist on-call who is admitting the patient. - Discussed findings and plan with patient. Answered any questions. - All laboratory values were reviewed and interpreted personally by myself, the ER physician - All imaging was reviewed and interpreted personally by myself, the ER physician. - Evaluation and treatment of this problem were appropriate in the emergency setting Lab Data 10/17/23 17:56 10/17/23 17:56 Radiology Impressions Chest X-Ray 10/17/23 17:29 IMPRESSION: No acute findings. Laboratory Results WBC 6.00 10^3/uL (3.29-11.43) 10/17/23 17:56 RBC 4.30 10^6/uL (3.85-5.65) 10/17/23 17:56 Hgb 13.20 g/dL (11.27-16.99) 10/17/23 17:56 Hct 38.7 % (37-53) 10/17/23 17:56 MCV 90.0 fl (82-101) 10/17/23 17:56 MCH 30.7 pg (27-33) 10/17/23 17:56 MCHC 34.1 g/dL (30-55) 10/17/23 17:56 RDW 12.6 % (12.1-15.1) 10/17/23 17:56 Plt Count 262 10^3/cmm (157-399) 10/17/23 17:56 MPV 9.8 fL (7.4-10.4) 10/17/23 17:56 Neut % (Auto) 62.9 % 10/17/23 17:56 Lymph % (Auto) 25.8 % 10/17/23 17:56 [place] % (Auto) 8.5 % 10/17/23 17:56 Eos % (Auto) 2.0 % 10/17/23 17:56 Baso % (Auto) 0.5 % 10/17/23 17:56 Neut # (Auto) 3.77 10^3/uL (1.8-7.7) 10/17/23 17:56 Lymph # (Auto) 1.6 10^3/uL (0.8-4.8) 10/17/23 17:56 [place] # (Auto) 0.5 10^3/uL (0.2-0.9) 10/17/23 17:56 Eos # (Auto) 0.1 10^3/uL (0.0-0.8) 10/17/23 17:56 Baso # (Auto) 0.0 10^3/uL (0.0-0.1) 10/17/23 17:56 Nucleated RBC % (auto) 0 % 10/17/23 17:56 Nucleated RBCs # 0.0 /100WBC 10/17/23 17:56 D-Dimer 0.43 ug/mLFEU (0-0.59) 10/17/23 17:56 Sodium 141 mmol/L (136-145) 10/17/23 17:56 Potassium 3.9 mmol/L (3.5-5.1) 10/17/23 17:56 Chloride 108 mmol/L (98-107) H 10/17/23 17:56 Carbon Dioxide 24 mmol/L (22-29) 10/17/23 17:56 Anion Gap 12.9 (5-19) 10/17/23 17:56 BUN 11 mg/dL (8-23) 10/17/23 17:56 Creatinine 1.1 mg/dL (0.7-1.2) 10/17/23 17:56 GFR Calculation 66.8 mL/min (90-130) L 10/17/23 17:56 Glucose 86 mg/dL (65-115) 10/17/23 17:56 Calculated Osmolality 291 mOsm/kg (285-295) 10/17/23 17:56 Calcium 9.1 mg/dL (8.5-10.5) 10/17/23 17:56 Total Bilirubin 0.2 mg/dL (0.15-1.2) 10/17/23 17:56 AST 17 U/L (0-40) 10/17/23 17:56 ALT 15 U/L (0-41) 10/17/23 17:56 Alkaline Phosphatase 58 U/L (40-130) 10/17/23 17:56 Troponin T Baseline 28 ng/L (0-15) H 10/17/23 17:56 Troponin T 120 Minute 30.26 ng/L (0-15) H 10/17/23 19:43 Delta Troponin T 2.26 ABS# (0-10) 10/17/23 19:43 Total Protein 7.5 g/dL (6.6-8.7) 10/17/23 17:56 Albumin 4.4 g/dL (3.5-5.2) 10/17/23 17:56 Globulin 3.1 g/dL (1.3-4.6) 10/17/23 17:56 TSH 1.60 uIU/mL (0.27-4.20) 10/17/23 17:56 All radiology interpretation(s) finalized by discharge Discharge Plan Discharge Patient Disposition: Placed in Observation Admit Provider: Trenton De La Cruz Clinical Impression: Coronary artery disease Chest pain Qualifiers: Chest pain type: chest pain on breathing Qualified Code(s): R07.1 - Chest pain on breathing Coding Level of Care Code ED Computer Programming Supervisor for Reuben Carpio
[2023-10-17] MEDS: aspirin 81 mg Chew Tablet 324 MG PO (17:39)
[2023-10-17 18:03] LABS: Basophils % 0.5 %; Eosinophils # 0.1 10^3/uL (0.0-0.8); Hematocrit 38.7 % (37-53); Lymphocytes # 1.6 10^3/uL (0.8-4.8); Lymphocytes % 25.8 %; Mean Corpuscular HGB Conc 34.1 g/dL (30-55); Mean Corpuscular Hemoglobin 30.7 pg (27-33); Mean Platelet Volume 9.8 fL (7.4-10.4); Monocytes # 0.5 10^3/uL (0.2-0.9); Monocytes % 8.5 %; Neutrophils # 3.77 10^3/uL (1.8-7.7); Neutrophils % 62.9 %; Nucleated Red Blood Cells % 0 %; Platelet Count 262 10^3/cmm (157-399); Red Cell Distribution Width 12.6 % (12.1-15.1)
[2023-10-17 18:06] VITALS: BP 142/79; PULSE 64; RESP 18; O2SAT 91
[2023-10-17 18:24] LABS: Troponin(5th) Baseline 28 ng/L (0-15)
[2023-10-17 18:25] LABS: Alanine Aminotransferase 15 U/L (0-41); Albumin Level 4.4 g/dL (3.5-5.2); Alkaline Phosphatase 58 U/L (40-130); Anion Gap 12.9 (5-19); Aspartate Amino Transferase 17 U/L (0-40); Blood Urea Nitrogen 11 mg/dL (8-23); Calcium 9.1 mg/dL (8.5-10.5); Carbon Dioxide 24 mmol/L (22-29); Chloride 108 mmol/L (98-107); Creatinine Clr Calc Pharmacy 72.5458; Globulin 3.1 g/dL (1.3-4.6); Glomerular Filtration Rate 66.8 mL/min (90-130); Glucose 86 mg/dL (65-115); Osmolality Calculated 291 mOsm/kg (285-295); Potassium 3.9 mmol/L (3.5-5.1); Sodium 141 mmol/L (136-145); Total Bilirubin 0.2 mg/dL (0.15-1.2); Total Protein 7.5 g/dL (6.6-8.7)
[2023-10-17 18:51] VITALS: PULSE 71; RESP 17; O2SAT 95
--- NOTE | 2023-10-17 19:30 | ECG_ITS ---
[facility] Test Date: 2023-10-17 Pat Name: Scout Nunez Department: Room: Gender: Male Senior Java Data Architect: : 1955 Requested By: Jorge Hawkins Order Number: [id number] Robin MD: Blayne Solorio M.D. Measurements Intervals [place] Rate: 53 P: 42 ME: 151 QRS: -16 QRSD: 108 T: 0 QT: 446 QTc: 421 Interpretive Statements SINUS BRADYCARDIA LOW QRS VOLTAGE IN PRECORDIAL LEADS [QRS DEFLECTION < 1.0 mV IN CHEST LEADS] PATTERN CONSISTENT WITH PULMONARY DISEASE Compared to ECG 10/17/2023 16:59:02 No significant change Electronically Signed On 10-18-2023 11:47:16 CDT by Blayne Solorio M.D. [id number]
[2023-10-17 20:04] LABS: Troponin 5 2HR 30.26 ng/L (0-15); Troponin 5 2HR Delta 2.26 ABS# (0-10)
--- NOTE | 2023-10-17 21:03 | P.HP_ITS ---
Providers/Chief Complaint 2 Primary Care Provider: Gilson Wright MD Chief Complaint: Light Chest Pain and Pressure History of Present Illness Scout Nunez is a 67 year old male who recently had stent placed and intermedius, 09/30 coronary angiogram revealed atherosclerotic disease in the rest of the vessels, patient has been compliant with his dual antiplatelet therapy, he also carries history of hypertension takes losartan, amlodipine takes tamsulosin for BPH, presenting today with chief complaint of not feeling well and chest pain. Patient is stating that for last 1 week he has been experiencing chest pain without any significant trigger factors he has been noticing chest discomfort which he is describing as pressure-like sensation radiating towards his neck, it would start spontaneously but definitely gets worse on exertion associated with shortness of breath. He is denying nausea vomiting diaphoresis. Stating that this pain is different than the last time when he had stent placed. In the ER he was hypotensive and bradycardic. Decision was made not to give him nitroglycerin, I will give him IV fluids overnight Case discussed with Dr. Crooks who requested n.p.o. status. Troponin without significant delta EKG showing sinus bradycardia without any acute infarct or changes Review of Systems 2 Eyes: Denies: change in vision ENMT: Denies: throat pain Card: Reports: chest pain Resp: Reports: dyspnea GI: Denies: abdominal pain : Denies: flank pain Medications/Allergies Home Medications Medication Instructions Recorded Confirmed Last Taken Type dutasteride 0.5 mg capsule 0.5 mg PO DAILY 12/01/19 09/30/23 10/01/23 06:30 History gabapentin 600 mg tablet 600 mg PO DAILY 12/01/19 09/30/23 10/01/23 06:30 History simvastatin 40 mg tablet 40 mg PO DAILY 12/01/19 10/01/23 09/30/23 18:30 History tamsulosin 0.4 mg capsule (Flomax) 0.4 mg PO DAILY 12/01/19 10/01/23 10/01/23 06:30 History albuterol sulfate 90 mcg/actuation 2 puff inhalation Q6H PRN 12/09/19 09/30/23 Unknown History aerosol inhaler Shortness Of Breath Or Wheezing tramadol 50 mg tablet 50 mg PO DAILY 12/09/19 10/01/23 10/01/23 06:30 History amlodipine 5 mg tablet 5 mg PO DAILY 09/18/23 09/30/23 10/01/23 06:30 History baclofen 10 mg tablet 10 mg PO DAILY 09/18/23 09/30/23 10/01/23 06:30 History losartan 100 mg tablet 100 mg PO DAILY 09/18/23 09/30/23 10/01/23 06:30 History nitroglycerin 0.4 mg sublingual 0.4 mg sublingual Q5M PRN chest 09/18/23 09/30/23 Unknown Rx tablet (Nitrostat) pain #30 tabs fenofibrate micronized 67 mg 67 mg PO DAILY 09/30/23 09/30/23 10/01/23 06:30 History capsule pantoprazole 40 mg tablet,delayed 40 mg PO DAILY 09/30/23 09/30/23 10/01/23 06:30 History release aspirin 81 mg tablet,delayed 81 mg PO DAILY #90 tabs 10/02/23 Unknown Rx release clopidogrel 75 mg tablet 75 mg PO DAILY #90 tabs 10/02/23 Unknown Rx Allergies Allergy/AdvReac Type Severity Reaction Status Date / Time No Known Allergies Allergy Verified 10/17/23 17:09 PFSH Acute 2 PFSH: Medical History (Updated 10/17/23 @ 21:40 by Trenton De La Cruz MD) Insomnia DDD (degenerative disc disease), lumbar Obstructive chronic bronchitis without exacerbation Hyperlipidemia BPH loc w urin obs/LUTS Eczema Inflammatory arthritis Surgical History History of back surgery H/O shoulder surgery Family History Mother Diabetes Father Diabetes Social History Smoking and tobacco/nicotine status: former use of tobacco/nicotine Alcohol intake: unknown Substance/Drug Use: unknown Adopted: No Caregiver/support person: No Lives independently: No Household members: spouse Marital status: Current occupational status: employed Vitals/I&O/Wt Last Vital Signs Temp 98.1 F 10/17/23 17:04 Pulse 71 10/17/23 18:51 Resp 17 10/17/23 18:51 BP 142/79 10/17/23 18:06 Pulse Ox 95 10/17/23 18:51 O2 Del Method Room Air 10/17/23 18:06 Weight last 48 hrs Weight 90.718 kg Physical Exam 2 Narrative: Euvolemic Hypertension Bradycardic Pleasant cooperative No active shortness of breath Currently on room air Chest pain 06/15 Reproducible Nonfocal neuroexam GCS 15 Family at the bedside Abdomen distended nontender Data 10/17/23 17:56 10/17/23 17:56 A&P Assessment and plan (1) Unstable angina: (2) Hypotension: (3) Bradycardia: Plan Unstable angina Will keep patient n.p.o. Start IV fluids for hypotension Avoid nitrates and antianginal medication optimization overnight Request 2D limited echo Case discussed with Dr. Crooks who recommended stress test in the morning however patient may need another angiogram in case of persistent unstable anginal symptoms Continue aspirin and Plavix DVT prophylaxis: Lovenox EKG showing sinus bradycardia, check TSH, hold antihypertensive regimen Patient is stating that normally his blood pressure is on the higher side at home blood pressure of 105 ,110 -115 mmhg is pretty low for him and he has been feeling really drained and tired. Full code N.p.o. after midnight Check TSH Dr. Crooks consulted D-dimer requested as well Attestations 2 Medical Necessity Statement*: Anticipating discharge within 48 hours Diagnoses Unstable angina I20.0 Hypotension I95.9 Bradycardia R00.1
[2023-10-17 21:22] LABS: D Dimer 0.43 ug/mLFEU (0-0.59)
[2023-10-17] MEDS: lidocaine 2% viscous 15 ML, aluminum-mag hydrox-simethicon 30 ML, sucralfate oral liq 1 GM PO (21:24)
[2023-10-17] MEDS: enoxaparin 40 mg/0.4 mL Syringe SUBCUT (21:26)
[2023-10-17 21:30] VITALS: BP 123/67; PULSE 52; RESP 18; O2SAT 97
[2023-10-17] MEDS: sodium chloride 0.9% 1,000 ML 75 ML IV (21:36)
[2023-10-17 22:27] VITALS: BP 114/61; PULSE 55; RESP 14; O2SAT 94
--- NOTE | 2023-10-17 22:50 | ECG_ITS ---
[facility] Test Date: 2023-10-18 Pat Name: Scout Nunez Department: Room: 253 Gender: Male Patient Svcs Mgr: : 1955 Requested By: Trenton De La Cruz Order Number: [id number] Robin MD: Carmita Crooks M.D. Interpretive Statements NAME OF STUDY: LEXISCAN SESTAMIBI STRESS TEST INDICATION: Unstable Anigna PROCEDURE: At the baseline, the EKG revealed normal sinus rhythm with incomplete right bundle branch block. Poor R wave progression. Nonspecific T wave changes. The baseline heart was 68 bpm with a blood pressue of 130/69 mm of Hg Lexiscan was infused over a period of 20 seconds. A total of 0.4 milligrams of Lexiscan was infused. The stress phase was continued for a total of 5 minutes. Heart rate at the end of the stress phase was 74 bpm with a blood pressure 126/64 mm of Hg. The EKG at the peak infusion revealed no significant changes. Sestamibi was injected 20 seconds after the Lexiscan infusion. Heart rate at the end of the recovery phase was 79 bpm with a blood pressure of 119/63 mm of Hg. CONCLUSION: 1. No significant EKG changes with the LexiScan infusion 2. No LexiScan induced chest pain or cardiac arrhythmia 3. Normal blood pressure and heart rate response 4. Sestamibi/sestamibi perfusion scan pending; see separate report. Electronically Signed On 10-24-2023 22:39:47 CDT by Carmita Crooks M.D. [id number]
--- NOTE | 2023-10-17 22:50 | USCV_ITS ---
Scout Nunez Age: 67 Gender: M : 1955 Exam Date: 10/17/2023 23:14 Ordering Phys: Trenton De La Cruz MD Technologist: VONNIE [place] [facility] [place] cardiac stent 2 weeks ago; c/o chest pressure BP: 114 / 61 HR: 62 Rhythm: Sinus Technical Quality: Adequate MEASUREMENTS (Male / Female) Normal Values 2D ECHO LV Diastolic Diameter PLAX 4.7 cm 4.2 - 5.9 / 3.9 - 5.3 cm IVS Diastolic Thickness 1.4 cm 0.6 - 1.0 / 0.6 - 0.9 cm IVS Systolic Thickness 1.8 cm LVPW Diastolic Thickness 1.3 cm 0.6 - 1.0 / 0.6 - 0.9 cm LVPW Systolic Thickness 1.6 cm LVOT Diameter 2.3 cm LV Ejection Fraction 2D Teich 57.4 % LV Ejection Fraction MOD 4C 71.6 % LV Ejection Fraction MOD 2C 52.0 % LV Ejection Fraction 2C AL 51.4 % LA Diameter 4.2 cm LA Sys Volume AL 65.7 cm cubed LA Sys Volume Index AL 30.9 cm cubed/m squared Aorta at Sinotubular Diameter 3.5 cm IVC Diameter 2.5 cm M-MODE LA Ao Ratio MM 1.3 AV Cusp Separation MM 2.2 cm DOPPLER AV Peak Velocity 123.0 cm/s LVOT Peak Velocity 68.0 cm/s AV Area Cont Eq vti 2.5 cm squared AV Area Cont Eq pk 2.3 cm squared MV Peak Velocity 99.0 cm/s MV Area PHT 2.5 cm squared Mitral E to A Ratio 0.7 TR Peak Velocity 278.0 cm/s TR Peak Gradient 30.9 mmHg TV Peak E Velocity 49.0 cm/s Right Atrial Pressure 3.0 mmHg Pulmonary Artery Systolic Pressu 33.9 mmHg PV Peak Velocity 96.0 cm/s FINDINGS Left Ventricle Normal LV size ejection fraction of around 70%.mild left ventricular hypertrophy. Grade I/IV diastolic dysfunction (abnormal relaxation filling pattern), normal to mildly elevated filling pressures. No gross wall motion abnormalities noted Right Ventricle The right ventricle is normal in size and function. Right Atrium The right atrium is normal in size. Left Atrium Mildly increased left atrial size. Mitral Valve Mild mitral valve regurgitation. Aortic Valve Minimal calcification in the noncoronary cusp. Tricuspid Valve No gross abnormalities noted Pulmonic Valve Trace pulmonary valve regurgitation. Pericardium Normal pericardium without effusion. Aorta Normal ascending aorta dimension. IVC The inferior vena cava appears normal. CONCLUSIONS Normal LV size ejection fraction of around 70%.mild left ventricular hypertrophy. Grade I/IV diastolic dysfunction (abnormal relaxation filling pattern), normal to mildly elevated filling pressures. No gross wall motion abnormalities noted. Mildly increased left atrial size. Minimal calcification in the noncoronary cusp of the aortic valve. Mild mitral valve regurgitation. Trace pulmonary valve regurgitation. There is no pericardial effusion. There are no intracardiac masses. Compared to the study from 08/16/2015, there may not be a significant change Dr Carmita Crooks MD [facility] (Electronically Signed) Final Date: 18 October 2023 08:45 S
[2023-10-17 22:52] VITALS: BP 143/71; PULSE 60; RESP 20; TEMP 36.3; O2SAT 96
[2023-10-17 22:59] VITALS: BMI 29.6
[2023-10-18] VITALS (9 sets, daily range): BP systolic 126–152; BP diastolic 66–76; PULSE 53–88; RESP 16–20; TEMP 36.3–36.9; O2SAT 94–97
[2023-10-18 00:05] LABS: Troponin 5 6HR 30.29 ng/L (0-15); Troponin 5 6HR Delta 2.29 ng/L (0-12)
--- NOTE | 2023-10-18 03:19 | PC.RESP ---
RT went to do EKG @ 2330 patient in procedure. RT called to help with a stat call EKG was not completed.
[2023-10-18 06:17] LABS: Basophils % 0.3 %; Eosinophils # 0.2 10^3/uL (0.0-0.8); Eosinophils % 2.6 %; Lymphocytes # 1.3 10^3/uL (0.8-4.8); Lymphocytes % 22.8 %; Mean Corpuscular HGB Conc 32.4 g/dL (30-55); Mean Corpuscular Hemoglobin 29.8 pg (27-33); Mean Corpuscular Volume 91.7 fl (82-101); Mean Platelet Volume 9.9 fL (7.4-10.4); Monocytes # 0.4 10^3/uL (0.2-0.9); Monocytes % 6.9 %; Neutrophils # 3.89 10^3/uL (1.8-7.7); Neutrophils % 67.1 %; Nucleated Red Blood Cells % 0 %; Platelet Count 257 10^3/cmm (157-399); Red Blood Count 4.47 10^6/uL (3.85-5.65); Red Cell Distribution Width 12.7 % (12.1-15.1)
[2023-10-18 06:30] LABS: Anion Gap 14.2 (5-19); Blood Urea Nitrogen 11 mg/dL (8-23); C Reactive Protein 7.7 mg/L (0.0-4.9); Calcium 8.9 mg/dL (8.5-10.5); Carbon Dioxide 24 mmol/L (22-29); Chloride 111 mmol/L (98-107); Creatinine Clr Calc Pharmacy 72.5458; Glomerular Filtration Rate 66.8 mL/min (90-130); Glucose 92 mg/dL (65-115); Magnesium 2.3 mg/dL (1.7-2.3); Osmolality Calculated 299 mOsm/kg (285-295); Potassium 4.2 mmol/L (3.5-5.1); Sodium 145 mmol/L (136-145)
[2023-10-18] MEDS: regadenoson 0.4 Mg/5 ml Syringe IVP (07:09)
--- NOTE | 2023-10-18 08:16 | PC.CHAP ---
Pastoral Care Encounter/Spiritual Assessment Type of Contact [] Declined tar leveler visit [] Patient/Family/Request visit [] Outpatient visit [] Follow-up visit [] Physician referral [] Code/Alert [] Routine visit [] Staff referral [] Actively dying [] Patient sleeping [] Family support [] [] Out of room [] Palliative care [] [] Receiving care in room [] Pre-surgical visit [] Trauma [] Long length of stay [] ICU visit [] Other: Relational/Emotional Strength [] Patient feels connected with others/family/visitors/staff [] Distress [] Loneliness/isolation [] Abandonment Spirituality of Patient [] Person of Leonora [] Attends Alevism of their Leonora [] Believes in Prayer [] Reads Bible or Episcopal materials [] There are Spiritual issues to be addressed Saloon Keeper Interventions [] Prayer [] Active listening [] Non-anxious presence [] Spiritual/emotional support [] Crisis/trauma care [] Spiritual counseling [] Bereavement support [] Provided bereavement packet [] Provided Bible/devotional materials [] Provided toy/stuffed animal, coloring book to patient or family member [] Provided Communion [] Anointing/[place] [] Salvation [] Completed spiritual assessment [] Other: Impact on Illness or Injury [] Angry [] Fearful [] Anxious [] Often cries [] Exhaustion [] Unable to work [] Unable to attend evangelical [] Unable to walk/stand [] Unable to read [] Unable to drive [] Unable to eat/drink [] Unable to sleep [] Unable to be with family [] Patient intubated [] Other: Summary Time spent with patient
[2023-10-18] MEDS: atorvastatin 40 mg Tablet PO (09:15)
[2023-10-18] MEDS: clopidogrel 75 mg Tablet PO (09:15)
[2023-10-18] MEDS: aspirin 81 mg EC Tablet PO (09:15)
--- NOTE | 2023-10-18 09:24 | PM.CONSULT ---
Providers/Reason For Consult Consulting Physician/Specialty*: BROOKLYNN Crooks MD/cardiology Reason for Consult*: Patient with recurrent episodes of chest pain, recent PCI Requesting Physician: Dr. Richards/Dr. De La Cruz Attending Physician: Kwadwo Richards MD Primary Care Provider: Gilson Wright MD History of Present Illness History of Present Illness Scout Nunez is a 67 year old male with a history of atherosclerotic heart disease, who had a recent PCI. He is presenting with complaints of chest pain/heaviness. Cardiology consult is requested for further cardiac evaluation recommendations. This patient has a history of high blood pressure and dyslipidemia. He was seen by me last month in the office where he presented with complaints of chest pain and shortness of breath. Prior to this, he had a treadmill stress test which was found to be abnormal. 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 He had a mild disease in the other vessels. He underwent angioplasty and stent placement of the intermedius artery with excellent angiographic results. According to the patient, ever since the intervention, he been having some episodes of sharp pains and occasional tightness in the upper part of the chest, radiated to the neck. The pressure-like feeling in the upper chest area may persist. Intensity is graded as 2-3/10. He has no associated nausea, vomiting, sweating. He has been feeling weak and tired. According to the patient, he has not felt much better since the intervention. He is still feeling tired and somewhat short of breath. He has no fever, chills or cough. No other specific complaints. He was in the emergency room yesterday where he presented with complaints of episodes of sharp chest pains lasting for few seconds and also tightness in the upper part of the chest radiated to the neck. His blood pressure was running in the low normal side. He was admitted to the hospital for further evaluation and management. Patient also was having episodes of slow heartbeat in the 50s and occasionally in the 40s? As per his daughter Patient underwent a Myocardial perfusion imaging today. He was found to have a moderate area of minimal to moderately decreased tracer uptake involving the basal and mid inferolateral and anterolateral segments with a some reversibility in the basal regions. The LV ejection fraction was normal. He also had an echocardiogram which revealed normal LV size ejection fraction with no significant wall motion abnormalities. Review of Systems Narrative: CONSTITUTIONAL: No fever or chills. EYES: No blurring of vision or other visual disturbances lately. ENT: No hoarseness of voice, auditory disturbances or sore throat. CARDIOVASCULAR: As mentioned above. RESPIRATORY: No significant cough. GASTROINTESTINAL: No hematemesis or melena. GENITOURINARY: No dysuria or hematuria. INTEGUMENTARY: No skin rashes or history of skin cancer. NEURO: No transient ischemic attacks or amaurosis. PSYCHIATRIC: No history of psychosis or major depression. HEMATOLOGIC: No bleeding disorders or significant anemia. ENDOCRINE: No history of polyuria or polydipsia. MUSCULOSKELETAL: No recent joint pain or swelling. ALLERGY/IMMUNOLOGY: As mentioned above. Medications/Allergies Home Medications Medication Instructions Recorded Confirmed Last Taken Type dutasteride 0.5 mg capsule 0.5 mg PO DAILY 12/01/19 10/17/23 10/17/23 History gabapentin 600 mg tablet 600 mg PO DAILY 12/01/19 10/17/23 10/17/23 History simvastatin 40 mg tablet 40 mg PO DAILY 12/01/19 10/17/23 10/17/23 History tamsulosin 0.4 mg capsule (Flomax) 0.4 mg PO DAILY 12/01/19 10/17/23 10/17/23 History albuterol sulfate 90 mcg/actuation 2 puff inhalation Q6H PRN 12/09/19 10/17/23 Unknown History aerosol inhaler Shortness Of Breath Or Wheezing tramadol 50 mg tablet 50 mg PO DAILY 12/09/19 10/17/23 10/17/23 History amlodipine 5 mg tablet 5 mg PO DAILY 09/18/23 10/17/23 10/17/23 History baclofen 10 mg tablet 10 mg PO PRN PRN Back spasms 09/18/23 10/17/23 10/01/23 06:30 History losartan 100 mg tablet 100 mg PO DAILY 09/18/23 10/17/23 10/17/23 History nitroglycerin 0.4 mg sublingual 0.4 mg sublingual Q5M PRN chest 09/18/23 10/17/23 10/17/23 Rx tablet (Nitrostat) pain #30 tabs fenofibrate micronized 67 mg 67 mg PO DAILY 09/30/23 10/17/23 10/17/23 History capsule pantoprazole 40 mg tablet,delayed 40 mg PO DAILY 09/30/23 10/17/23 10/17/23 History release aspirin 81 mg tablet,delayed 81 mg PO DAILY #90 tabs 10/02/23 10/17/23 10/17/23 Rx release clopidogrel 75 mg tablet 75 mg PO DAILY #90 tabs 10/02/23 10/17/23 10/17/23 Rx Allergies Allergy/AdvReac Type Severity Reaction Status Date / Time No Known Allergies Allergy Verified 10/17/23 17:09 Current Medications Generic Name Dose Route Start Last Admin Trade Name Nita PRN Reason Stop Dose Admin Aspirin 81 mg 10/18/23 09:00 10/18/23 09:15 Aspirin 81 Mg Ec Tablet PO 81 mg DAILY [facility] Administration Atorvastatin Calcium 40 mg 10/18/23 09:00 10/18/23 09:15 Atorvastatin 40 Mg Tablet PO 40 mg DAILY [facility] Administration Clopidogrel Bisulfate 75 mg 10/18/23 09:00 10/18/23 09:15 Clopidogrel 75 Mg Tablet PO 75 mg DAILY [facility] Administration Enoxaparin Sodium 40 mg 10/17/23 21:15 10/17/23 21:26 Enoxaparin 40 Mg/0.4 Ml Syringe SUBCUT 40 mg Q24H [facility] Administration Sodium Chloride 1,000 mls @ 75 mls/hr 10/17/23 21:15 10/17/23 21:36 Sodium Chloride 0.9% IV 75 mls/hr .[id number] [facility] Administration PFSH Acute PFSH: Medical History (Updated 10/18/23 @ 10:52 by Carmita Crooks MD) Insomnia DDD (degenerative disc disease), lumbar Obstructive chronic bronchitis without exacerbation Hyperlipidemia BPH loc w urin obs/LUTS Eczema Inflammatory arthritis Surgical History History of back surgery H/O shoulder surgery Family History Mother Diabetes Father Diabetes Social History Smoking and tobacco/nicotine status: former use of tobacco/nicotine Alcohol intake: unknown Substance/Drug Use: unknown Adopted: No Caregiver/support person: No Lives independently: No Household members: spouse Marital status: Current occupational status: employed Vitals/I&O/Wt Last Vital Signs Temp 97.4 F L 10/18/23 08:27 Pulse 67 10/18/23 08:27 Resp 18 10/18/23 08:27 BP 148/74 10/18/23 08:27 Pulse Ox 96 10/18/23 08:27 O2 Del Method Room Air 10/18/23 08:27 10/17/23 10/18/23 10/18/23 22:59 06:59 14:59 Intake Total 480 / 480 480 / 480 Balance 480 / 480 480 / 480 Weight last 48 hrs Weight 200 lb Weight 200 lb 12.8 oz Weight 200 lb Physical Exam Narrative: GENERAL: The patient is alert and oriented times three. Not in any acute distress. HEENT: No significant pallor, icterus or lymphadenopathy.Oral cavity: There are no mucous membrane lesions. NECK: Trachea appears to be central. No masses noted. No JVD or thyromegaly appreciated. RESPIRATORY: Chest is symmetrical. No intercostals muscle retraction or any accessory muscle activation. There is no chest wall tenderness. Breath sounds are heard bilaterally. No rales or rhonchi heard. No evidence of any consolidation. BREASTS: Deferred. HEART: The heart sounds are normal. No S3 or S4. No significant murmurs. No pericardial rub ABDOMEN: No vessel pulsations or distention. No tenderness. No organomegaly appreciated. Bowel sounds are normally heard. : Deferred. RECTAL: Deferred. LYMPHATIC: No lymphadenopathy noted in the neck. EXTREMITIES: No edema or cyanosis. No clubbing. MUSCULOSKELETAL: No acute joint deformities or swelling SKIN: There are no significant rashes or ecchymosis NEUROPSYCHIATRIC: The patient is alert and oriented x3. Appears to be in a good mood. No tremors or rigidity noted. Data 10/18/23 05:54 10/18/23 05:54 Other Labs: Laboratory Last Values WBC 5.80 10^3/uL (3.29-11.43) 10/18/23 05:54 RBC 4.47 10^6/uL (3.85-5.65) 10/18/23 05:54 Hgb 13.30 g/dL (11.27-16.99) 10/18/23 05:54 Hct 41.0 % (37-53) 10/18/23 05:54 MCV 91.7 fl (82-101) 10/18/23 05:54 MCH 29.8 pg (27-33) 10/18/23 05:54 MCHC 32.4 g/dL (30-55) 10/18/23 05:54 RDW 12.7 % (12.1-15.1) 10/18/23 05:54 Plt Count 257 10^3/cmm (157-399) 10/18/23 05:54 MPV 9.9 fL (7.4-10.4) 10/18/23 05:54 Neut % (Auto) 67.1 % 10/18/23 05:54 Lymph % (Auto) 22.8 % 10/18/23 05:54 [facility] % (Auto) 6.9 % 10/18/23 05:54 Eos % (Auto) 2.6 % 10/18/23 05:54 Baso % (Auto) 0.3 % 10/18/23 05:54 Neut # (Auto) 3.89 10^3/uL (1.8-7.7) 10/18/23 05:54 Lymph # (Auto) 1.3 10^3/uL (0.8-4.8) 10/18/23 05:54 [facility] # (Auto) 0.4 10^3/uL (0.2-0.9) 10/18/23 05:54 Eos # (Auto) 0.2 10^3/uL (0.0-0.8) 10/18/23 05:54 Baso # (Auto) 0.0 10^3/uL (0.0-0.1) 10/18/23 05:54 Nucleated RBC % (auto) 0 % 10/18/23 05:54 Nucleated RBCs # 0.0 /100WBC 10/18/23 05:54 D-Dimer 0.43 ug/mLFEU (0-0.59) 10/17/23 17:56 Sodium 145 mmol/L (136-145) 10/18/23 05:54 Potassium 4.2 mmol/L (3.5-5.1) 10/18/23 05:54 Chloride 111 mmol/L (98-107) H 10/18/23 05:54 Carbon Dioxide 24 mmol/L (22-29) 10/18/23 05:54 Anion Gap 14.2 (5-19) 10/18/23 05:54 BUN 11 mg/dL (8-23) 10/18/23 05:54 Creatinine 1.1 mg/dL (0.7-1.2) 10/18/23 05:54 GFR Calculation 66.8 mL/min (90-130) L 10/18/23 05:54 Glucose 92 mg/dL (65-115) 10/18/23 05:54 Calculated Osmolality 299 mOsm/kg (285-295) H 10/18/23 05:54 Calcium 8.9 mg/dL (8.5-10.5) 10/18/23 05:54 Magnesium 2.3 mg/dL (1.7-2.3) 10/18/23 05:54 Total Bilirubin 0.2 mg/dL (0.15-1.2) 10/17/23 17:56 AST 17 U/L (0-40) 10/17/23 17:56 ALT 15 U/L (0-41) 10/17/23 17:56 Alkaline Phosphatase 58 U/L (40-130) 10/17/23 17:56 Troponin T Baseline 28 ng/L (0-15) H 10/17/23 17:56 Troponin T 120 Minute 30.26 ng/L (0-15) H 10/17/23 19:43 Delta Troponin T 2.26 ABS# (0-10) 10/17/23 19:43 Troponin T Hi Sens 6Hr 30.29 ng/L (0-15) H 10/17/23 23:25 Troponin T Hi Sens 6Hr Delta 2.29 ng/L (0-12) 10/17/23 23:25 C-Reactive Protein 7.7 mg/L (0.0-4.9) H 10/18/23 05:54 Total Protein 7.5 g/dL (6.6-8.7) 10/17/23 17:56 Albumin 4.4 g/dL (3.5-5.2) 10/17/23 17:56 Globulin 3.1 g/dL (1.3-4.6) 10/17/23 17:56 TSH 1.60 uIU/mL (0.27-4.20) 10/17/23 17:56 Other data: The EKG showed a sinus bradycardia with a rate of 53 bpm. Poor R wave progression. Diffuse nonspecific T wave changes. Compared to the EKG from 08/26/2023, there may not be a significant change Myocardial perfusion imaging from today 1. Myocardial perfusion imaging revealing moderate area of minimal to moderately decreased tracer uptake involving the basal and mid inferolateral and anterolateral segments with some reversibility of the basal regions suggesting myocardial scarring in the distribution of the left circumflex artery with a small areas of elise-infarction ischemia. 2. Normal LV ejection fraction of 69%. 3. LV wall motion analysis revealing no gross wall motion abnormalities. 4. Normal LV volume Compared to the study from 07/10/2017, these findings are new Echocardiogram from yesterday Normal LV size ejection fraction of around 70%.mild left ventricular hypertrophy. Grade I/IV diastolic dysfunction (abnormal relaxation filling pattern), normal to mildly elevated filling pressures. No gross wall motion abnormalities noted. Mildly increased left atrial size. Minimal calcification in the noncoronary cusp of the aortic valve. Mild mitral valve regurgitation. Trace pulmonary valve regurgitation. There is no pericardial effusion. There are no intracardiac masses. Compared to the study from 08/16/2015, there may not be a significant change A&P Assessment and plan (1) Chest pain: Patient's chest pains are atypical. Some of the sharp chest pains could be related to PVCs. He was found to have occasional PVCs on the monitor. Relatively low blood pressure also could be contributing factor for overall symptomatology. He also was mentioning about slow heart rate in the 50s and occasionally in the 40s. Qualifiers: Chest pain type: chest pain on breathing Qualified Code(s): R07.1 - Chest pain on breathing (2) Atherosclerotic heart disease of [place] coronary artery with other forms of angina pectoris: Patient status post PCI of the intermedius artery as mentioned above. He had really mild disease in the other vessels. Possibility of stent thrombosis cannot be excluded but my clinical suspicion may be low (3) Hypotension: Patient was placed on amlodipine after his angiogram. His blood pressure was running relatively on the low side. This could be a contributing factor for his weakness and lethargy. Qualifiers: Hypotension type: hypotension due to drug Qualified Code(s): I95.2 - Hypotension due to drugs (4) Abnormal cardiovascular stress test: Patient has small areas of minimal ischemia in the basal inferior and basal anterolateral regions. This seems to be the distribution of the intermedius artery/high obtuse marginal branch. (5) Dyslipidemia: May continue on the current management. Plan At this point, in view of the above findings, I may discontinue the amlodipine. Continue on the losartan. I may add isosorbide mononitrate 30 mg p.o. daily. He will be closely monitored on telemetry. I also may add the Mag-Tab SR 84 mg p.o. twice daily. If his symptoms improve, he may be discharged home. Patient on the clinical progress, further recommendations will be made. Thank for the opportunity to evaluate this patient and make these recommendations Consult Attestations Medical Necessity Statement: Patient requires continued hospital stay for close monitoring and further management. May be discharged home later this afternoon, if the symptoms are resolved. Coding Level of Care Code 84304 Diagnoses Chest pain on breathing R07.1 Chest pain type: chest pain on breathing Atherosclerotic heart disease of [place] coronary artery with other forms of angina pectoris I25.118 Hypotension due to drugs I95.2 Hypotension type: hypotension due to drug Abnormal cardiovascular stress test R94.39 Dyslipidemia E78.5
[2023-10-18] MEDS: isosorbide mononitrate ER 30 mg Tablet PO (11:08)
[2023-10-18] MEDS: losartan 50 mg Tablet 100 MG PO (11:08)
--- NOTE | 2023-10-18 11:37 | PC.CHAP ---
Pastoral Care Encounter/Spiritual Assessment Type of Contact [] Declined picket labor union visit [] Patient/Family/Request visit [] Outpatient visit [] Follow-up visit [] Physician referral [] Code/Alert [X] Routine visit [] Staff referral [] Actively dying [] Patient sleeping [] Family support [] [] Out of room [] Palliative care [] [] Receiving care in room [] Pre-surgical visit [] Trauma [] Long length of stay [] ICU visit [] Other: Relational/Emotional Strength [X] Patient feels connected with others/family/visitors/staff [] Distress [] Loneliness/isolation [] Abandonment Spirituality of Patient [X] Person of Leonora [X] Attends Cheondoism of their [place]ora [X] Believes in Prayer [X] Reads Bible or Yazdanism materials [] There are Spiritual issues to be addressed Brim Blocker Interventions [X] Prayer [X] Active listening [x] Non-anxious presence [] Spiritual/emotional support [] Crisis/trauma care [] Spiritual counseling [] Bereavement support [] Provided bereavement packet [] Provided Bible/devotional materials [] Provided toy/stuffed animal, coloring book to patient or family member [] Provided Communion [] Anointing/[place] [] Salvation [] Completed spiritual assessment [] Other: Impact on Illness or Injury [] Angry [] Fearful [] Anxious [] Often cries [] Exhaustion [] Unable to work [] Unable to attend protestant [] Unable to walk/stand [] Unable to read [] Unable to drive [] Unable to eat/drink [] Unable to sleep [] Unable to be with family [] Patient intubated [] Other: Summary Paster Time spent with patient 5
--- NOTE | 2023-10-18 14:36 | P.DS_ITS ---
Discharge Providers Date of Admission: 10/17/23 21:47 Date of Discharge: October 18, 2023 Attending Provider at Admission: Trenton De La Cruz MD Attending Provider at Discharge: Kwadwo Richards MD Consults: Cardiology: Dr. 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 He is presenting with complaints of chest pain/heaviness. Cardiology consult is requested for further cardiac evaluation recommendations. This patient has a history of high blood pressure and dyslipidemia. He was seen by me last month in the office where he presented with complaints of chest pain and shortness of breath. Prior to this, he had a treadmill stress test which was found to be abnormal. 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 He had a mild disease in the other vessels. He underwent angioplasty and stent placement of the intermedius artery with excellent angiographic results. According to the patient, ever since the intervention, he been having some episodes of sharp pains and occasional tightness in the upper part of the chest, radiated to the neck. The pressure-like feeling in the upper chest area may persist. Intensity is graded as 2-3/10. He has no associated nausea, vomiting, sweating. He has been feeling weak and tired. According to the patient, he has not felt much better since the intervention. He is still feeling tired and somewhat short of breath. He has no fever, chills or cough. No other specific complaints. He was in the emergency room yesterday where he presented with complaints of episodes of sharp chest pains lasting for few seconds and also tightness in the upper part of the chest radiated to the neck. His blood pressure was running in the low normal side. He was admitted to the hospital for further evaluation and management. Patient also was having episodes of slow heartbeat in the 50s and occasionally in the 40s? As per his daughter Patient underwent a Myocardial perfusion imaging today. He was found to have a moderate area of minimal to moderately decreased tracer uptake involving the basal and mid inferolateral and anterolateral segments with a some reversibility in the basal regions. The LV ejection fraction was normal. He also had an echocardiogram which revealed normal LV size ejection fraction with no significant wall motion abnormalities. Given the above decision to treat medically was opted. His antihypertensives were adjusted and changed to Imdur 30 mg and amlodipine was stopped. He is not discharging hemodynamically stable condition ingested medication advised to follow-up with a primary care provider within next 1 week and with cardiology team within next 2 weeks. Physical Exam Narrative: General: No acute distress, AO x3 HEENT: PERRLA, pupils bilaterally equal and reactive Chest: Normal vesicular breath sounds, no added sounds, equal good air entry bilaterally CVS: S1-S2 regular, no murmurs, no tachycardia, no gallops, no rubs Abdomen: Soft, nontender, no organomegaly, bowel sounds present Neuro: No focal deficits, no facial deformity, AO x3, power 5/5 in all limbs Discharge Data Studies Completed and Pending Completed Studies During Hospitalization Category Date Time Status Sestamibi Stress Test Request Routine Exams 10/17/23 22:50 Draft XR chest 1V portable [id number] Stat Exams 10/17/23 17:29 Completed NM ai perf SPECT r/s* [id number] Routine Nuc Med 10/18/23 22:50 Completed CV. echo limited [id number] Routine Ultrasound 10/17/23 22:50 Completed Radiology Impressions Chest X-Ray 10/17/23 17:29 IMPRESSION: No acute findings. Echocardiogram: CONCLUSIONS Normal LV size ejection fraction of around 70%.mild left ventricular hypertrophy. Grade I/IV diastolic dysfunction (abnormal relaxation filling pattern), normal to mildly elevated filling pressures. No gross wall motion abnormalities noted. Mildly increased left atrial size. Minimal calcification in the noncoronary cusp of the aortic valve. Mild mitral valve regurgitation. Trace pulmonary valve regurgitation. There is no pericardial effusion. There are no intracardiac masses. Compared to the study from 08/16/2015, there may not be a significant change Dr Carmita Crooks MD [facility] (Electronically Signed) Final Date: 18 October 2023 Lexiscan stress test. PERFUSION FINDINGS Minimal to moderately decreased tracer uptake was noted in the basal and mid inferolateral and anterolateral segments. Some reversibility was noted in the basal segments. FUNCTIONAL RESULTS (calculated via Gated SPECT) Stress Image LV EF (%): 69 Stress EDV (mL):125 TID: 0.95 Stress ESV (mL):39 FUNCTIONAL FINDINGS: Segmental wall motion analysis revealing no gross wall motion abnormalities IMPRESSIONS 1. Myocardial perfusion imaging revealing moderate area of minimal to moderately decreased tracer uptake involving the basal and mid inferolateral and anterolateral segments with some reversibility of the basal regions suggesting myocardial scarring in the distribution of the left circumflex artery with a small areas of elise-infarction ischemia. 2. Normal LV ejection fraction of 69%. 3. LV wall motion analysis revealing no gross wall motion abnormalities. 4. Normal LV volume Compared to the study from 07/10/2017, these findings are new Dr Carmita Crooks MD [facility] (Electronically Signed) Final Date: 18 October 2023 Laboratory Results WBC 5.80 10^3/uL (3.29-11.43) 10/18/23 05:54 RBC 4.47 10^6/uL (3.85-5.65) 10/18/23 05:54 Hgb 13.30 g/dL (11.27-16.99) 10/18/23 05:54 Hct 41.0 % (37-53) 10/18/23 05:54 MCV 91.7 fl (82-101) 10/18/23 05:54 MCH 29.8 pg (27-33) 10/18/23 05:54 MCHC 32.4 g/dL (30-55) 10/18/23 05:54 RDW 12.7 % (12.1-15.1) 10/18/23 05:54 Plt Count 257 10^3/cmm (157-399) 10/18/23 05:54 MPV 9.9 fL (7.4-10.4) 10/18/23 05:54 Neut % (Auto) 67.1 % 10/18/23 05:54 Lymph % (Auto) 22.8 % 10/18/23 05:54 Mcpherson % (Auto) 6.9 % 10/18/23 05:54 Eos % (Auto) 2.6 % 10/18/23 05:54 Baso % (Auto) 0.3 % 10/18/23 05:54 Neut # (Auto) 3.89 10^3/uL (1.8-7.7) 10/18/23 05:54 Lymph # (Auto) 1.3 10^3/uL (0.8-4.8) 10/18/23 05:54 Mcpherson # (Auto) 0.4 10^3/uL (0.2-0.9) 10/18/23 05:54 Eos # (Auto) 0.2 10^3/uL (0.0-0.8) 10/18/23 05:54 Baso # (Auto) 0.0 10^3/uL (0.0-0.1) 10/18/23 05:54 Nucleated RBC % (auto) 0 % 10/18/23 05:54 Nucleated RBCs # 0.0 /100WBC 10/18/23 05:54 D-Dimer 0.43 ug/mLFEU (0-0.59) 10/17/23 17:56 Sodium 145 mmol/L (136-145) 10/18/23 05:54 Potassium 4.2 mmol/L (3.5-5.1) 10/18/23 05:54 Chloride 111 mmol/L (98-107) H 10/18/23 05:54 Carbon Dioxide 24 mmol/L (22-29) 10/18/23 05:54 Anion Gap 14.2 (5-19) 10/18/23 05:54 BUN 11 mg/dL (8-23) 10/18/23 05:54 Creatinine 1.1 mg/dL (0.7-1.2) 10/18/23 05:54 GFR Calculation 66.8 mL/min (90-130) L 10/18/23 05:54 Glucose 92 mg/dL (65-115) 10/18/23 05:54 Calculated Osmolality 299 mOsm/kg (285-295) H 10/18/23 05:54 Calcium 8.9 mg/dL (8.5-10.5) 10/18/23 05:54 Magnesium 2.3 mg/dL (1.7-2.3) 10/18/23 05:54 Total Bilirubin 0.2 mg/dL (0.15-1.2) 10/17/23 17:56 AST 17 U/L (0-40) 10/17/23 17:56 ALT 15 U/L (0-41) 10/17/23 17:56 Alkaline Phosphatase 58 U/L (40-130) 10/17/23 17:56 Troponin T Baseline 28 ng/L (0-15) H 10/17/23 17:56 Troponin T 120 Minute 30.26 ng/L (0-15) H 10/17/23 19:43 Delta Troponin T 2.26 ABS# (0-10) 10/17/23 19:43 Troponin T Hi Sens 6Hr 30.29 ng/L (0-15) H 10/17/23 23:25 Troponin T Hi Sens 6Hr Delta 2.29 ng/L (0-12) 10/17/23 23:25 C-Reactive Protein 7.7 mg/L (0.0-4.9) H 10/18/23 05:54 Total Protein 7.5 g/dL (6.6-8.7) 10/17/23 17:56 Albumin 4.4 g/dL (3.5-5.2) 10/17/23 17:56 Globulin 3.1 g/dL (1.3-4.6) 10/17/23 17:56 TSH 1.60 uIU/mL (0.27-4.20) 10/17/23 17:56 Vitals Last Vital Signs Temp 98.5 F 10/18/23 11:52 Pulse 88 10/18/23 14:20 Resp 18 10/18/23 11:52 BP 132/76 10/18/23 14:20 Pulse Ox 95 10/18/23 11:52 O2 Del Method Room Air 10/18/23 11:52 Discharge Plan Discharge Patient Disposition: Home Condition: Stable Prescriptions: New magnesium L-lactate [Magtab] 84 mg Tablet Extended Release 84 mg PO BID Qty: 60 0RF isosorbide mononitrate 30 mg Tablet Extended Release 24 Hr 30 mg PO DAILY Qty: 30 0RF Continued tamsulosin [Flomax] 0.4 mg capsule 0.4 mg PO DAILY simvastatin 40 mg tablet 40 mg PO DAILY gabapentin 600 mg tablet 600 mg PO DAILY dutasteride 0.5 mg capsule 0.5 mg PO DAILY tramadol 50 mg tablet 50 mg PO DAILY albuterol sulfate 90 mcg/actuation HFA aerosol inhaler 2 puff INHALATION Q6H PRN (Reason: Shortness Of Breath Or Wheezing) baclofen 10 mg tablet 10 mg PO PRN PRN (Reason: Back spasms) losartan 100 mg tablet 100 mg PO DAILY nitroglycerin [Nitrostat] 0.4 mg tablet, sublingual 0.4 mg sublingual Q5M PRN (Reason: chest pain) Qty: 30 3RF fenofibrate micronized 67 mg Capsule 67 mg PO DAILY pantoprazole 40 mg Tablet,Delayed Release (Dr/Ec) 40 mg PO DAILY clopidogrel 75 mg Tablet 75 mg PO DAILY Qty: 90 3RF aspirin 81 mg Tablet,Delayed Release (Dr/Ec) 81 mg PO DAILY Qty: 90 3RF Discontinued amlodipine 5 mg tablet 5 mg PO DAILY Discharge Orders: Discharge Order (Routine); Ordered 10/18/23 Ordered By: Kwadwo Richards Referrals: Gilson Wright MD [Primary Care Provider] - 4-7 days Sade Vzaquez FNP [Nurse Practitioner] - 2 weeks Discharge Diet: Regular and Cardiac Discharge Activity: Resume usual activity and Increase activity as tolerated Patient Instructions: Opioid Safety Discharge Attestations Time Spent in Discharge Care*: greater than 30 min Specific Discharge Activities: educating patient, discussing with pcp/other providers, discussing with porter sample case/social workers/dc planners, documenting/other paperwork and evaluating patient/reviewing data Status at Discharge: Cognitive status at discharge: cognitively intact , Behavioral status at discharge: cooperative , Functional status at discharge: independent ambulation , Overall status at discharge: patient is back to baseline Quality Metrics Clinical Quality Measures [ No reported AMI, CVA or VTE this stay] Coding Level of Care Code 84965 Total time (in minutes) for Discharge: 60 Diagnoses Chest pain on breathing R07.1 Chest pain type: chest pain on breathing 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
--- NOTE | 2023-10-18 22:50 | NMCV_ITS ---
NM ai perf SPECT r/s* [id number] Scout Nunez Age: 67 Gender: M : 1955 Exam Date: 10/18/2023 06:21 Ordering Phys: Trenton De La Cruz MD Technologist: ANAND De Leon Exam Location: [facility] Indications: CP STRESS TEST Please see separate stress test report in [facility] for full findings IMAGE PROTOCOL Rest/Stress 1 Lexiscan Day Radiopharmaceutical Dose (mCi) Administration Site Administered by Rest: Tc-99m 10.9 IV ANAND De Leon Sestamibi Stress:Tc-99m 32.9 IV ANAND De Leon Sestamibi Rest: 18-Oct-2023 60 Discovery 630 Stress: 18-Oct-2023 30 Discovery 630 0.4mg Lexiscan. Supine position only as patient was unable to lay prone. SPECT RESULTS Technical Quality: Good Raw Data Analysis: Subdiaphragmatic activity Image Corrections: No attenuation or motion correction applied Summed Stress Score: 6 Summed Rest Score: 6 Summed Difference Score: 2 PERFUSION FINDINGS Minimal to moderately decreased tracer uptake was noted in the basal and mid inferolateral and anterolateral segments. Some reversibility was noted in the basal segments. FUNCTIONAL RESULTS (calculated via Gated SPECT) Stress Image LV EF (%): 69 Stress EDV (mL):125 TID: 0.95 Stress ESV (mL):39 FUNCTIONAL FINDINGS: Segmental wall motion analysis revealing no gross wall motion abnormalities IMPRESSIONS 1. Myocardial perfusion imaging revealing moderate area of minimal to moderately decreased tracer uptake involving the basal and mid inferolateral and anterolateral segments with some reversibility of the basal regions suggesting myocardial scarring in the distribution of the left circumflex artery with a small areas of elise-infarction ischemia. 2. Normal LV ejection fraction of 69%. 3. LV wall motion analysis revealing no gross wall motion abnormalities. 4. Normal LV volume Compared to the study from 07/10/2017, these findings are new Dr Carmita Crooks MD [facility] (Electronically Signed) Final Date: 18 October 2023 08:49 S
== END 2023-10-18 15:32 | disposition home or self-care (01) ==
LOC: ER 20:38 → MEDSURG 21:47
PROVIDERS: Family Medicine; Admitting Provider Internal Medicine; Emergency Provider Emergency Medicine; PCP Family Medicine; Visit Provider Student in an Organized Health Care Education/Training Program
DX: R07.1 Chest pain on breathing (principal); I25.118 Atherosclerotic heart disease of native coronary artery with other forms of angina pectoris; I95.2 Hypotension due to drugs; R94.39 Abnormal result of other cardiovascular function study; E78.5 Hyperlipidemia, unspecified; I10 Essential (primary) hypertension; N40.1 Benign prostatic hyperplasia with lower urinary tract symptoms; N13.8 Other obstructive and reflux uropathy; Z87.891 Personal history of nicotine dependence; Z79.82 Long term (current) use of aspirin; Z95.5 Presence of coronary angioplasty implant and graft
CPT/HCPCS: 36415; 71045; 78452; 80048; 80053; 83735; 84443; 84484; 85025; 85378; 86140; 93005; 93017; 93308; 96372; 96375; 99285; A9500; G0378; J1650; J2785; J7030

== ENCOUNTER → 2023-10-29 13:16 | Outpatient (BNVA) | payer MEDICARE, SELFPAY | PROVIDERS: PCP Family Medicine; Visit Provider Nurse Practitioner Family | DX: Z09 Encounter for follow-up examination after completed treatment for conditions other than malignant neoplasm (principal) | CPT/HCPCS: 99213 ==

== ENCOUNTER 2023-12-10 12:09 | Outpatient (CLI) | payer MEDICARE, SELFPAY | END 2023-12-10 12:10 | disposition home or self-care (01) | LOC: SLEEP 12:09 | PROVIDERS: PCP Family Medicine; Visit Provider Family Medicine | DX: G47.33 Obstructive sleep apnea (adult) (pediatric) (principal) | CPT/HCPCS: G0399 ==

== ENCOUNTER → 2024-02-17 13:51 | Outpatient (BNVA) | payer MEDICARE, SELFPAY | PROVIDERS: PCP Family Medicine; Visit Provider Internal Medicine Cardiovascular Disease | DX: I25.118 Atherosclerotic heart disease of native coronary artery with other forms of angina pectoris (principal); I10 Essential (primary) hypertension; E78.5 Hyperlipidemia, unspecified | CPT/HCPCS: 99214 ==

== ENCOUNTER → 2024-08-17 09:42 | Outpatient (BNVA) | payer MEDICARE, SELFPAY | PROVIDERS: PCP Family Medicine; Visit Provider Nurse Practitioner Family | DX: I25.118 Atherosclerotic heart disease of native coronary artery with other forms of angina pectoris (principal); I10 Essential (primary) hypertension; E78.5 Hyperlipidemia, unspecified; Z79.01 Long term (current) use of anticoagulants; Z79.82 Long term (current) use of aspirin; Z95.5 Presence of coronary angioplasty implant and graft; Z87.891 Personal history of nicotine dependence | CPT/HCPCS: 99213 ==

== ENCOUNTER 2024-08-19 09:16 | Outpatient (CLI) | payer MEDICARE, SELFPAY ==
--- NOTE | 2024-08-19 09:20 | CT_ITS ---
WS: [id number] CT ABDOMEN AND PELVIS WITH CONTRAST HISTORY: ABDOMINAL DISCOMFORT TECHNIQUE: Imaging performed of the abdomen and pelvis with IV contrast. Single phase imaging of the abdomen. Coronal and sagittal reformats are submitted. All CT scans at [facility] use at least one of these dose optimization techniques: automated exposure control; mA and/or kV adjustment per patient size (includes targeted exams where dose is matched to clinical indication); or iterative reconstruction. IV CONTRAST: Omnipaque 350; 100 mL IV. Oral contrast: Yes. DLP: 636.67 mGy.cm COMPARISON: Gallbladder ultrasound 08/05/2024, CT 06/25/2017 Lower thorax: Stable noncalcified 4 mm nodule RIGHT middle lobe since 2018. Heart is normal size. No hiatal hernia. Liver/biliary system: Normal size liver. 8 mm hepatic cyst LEFT lobe. Normal portal vein. Gallbladder: Normal. No gallstones or wall thickening. No pericholecystic fluid. Pancreas: Normal size pancreas and pancreatic duct. No adjacent inflammation. Spleen: Normal size spleen. No mass or infarct. Adrenal glands: Normal. Right kidney: Normal. Left kidney: Normal. Aorta: Mild atherosclerosis. Normal variant celiac axis. No aneurysm. Lymphadenopathy: None. Free fluid: None. GI tract: No small bowel obstruction. Mild diffuse constipation. No appendicitis. Advanced diverticular disease in the descending and sigmoid colon. Wall thickening of the sigmoid with numerous diverticula. Lumen is narrowed. No abscess. Abdominal wall: Unremarkable abdominal wall. No hernia. Pelvis: Nondistended urinary bladder. There is a focal area of wall thickening involving the urinary bladder. This is closely associated with sigmoid diverticular disease. Although there does not appear to be a connection at this time concern is for developing fistula. Bones: Posterior lumbar fusion L4-S1. Vacuum disc phenomenon throughout the lumbar spine. CT/CT abdomen pelvis w con* [id number] IMPRESSION: 1. Advanced sigmoid diverticulosis. Numerous diverticula with no obvious acute diverticulitis at this time. 2. Focal bladder wall thickening with a closely associated sigmoid diverticula . At this time there is no fistula but the possibility of a developing fistula should be considered in this patient. Diverticula and the bladder wall thickeni ng are very closely associated with each other. 3. No GI tract obstruction. 4. Negative gallbladder. 5. Hepatic cyst LEFT lobe of the liver.
[2024-08-19] MEDS: iohexol 350 mg/mL 500 mL Btl (per mL) PO (10:31)
[2024-08-19 10:37] LABS: Blood Urea Nitrogen 11 mg/dL (8-23); Glomerular Filtration Rate 50.4 mL/min (90-130)
[2024-08-19] MEDS: iohexol 350 mg/mL 500 mL Btl (per mL) IV (10:41)
== END 2024-08-19 09:17 | disposition home or self-care (01) ==
PROVIDERS: PCP Family Medicine; Visit Provider Family Medicine
DX: R10.9 Unspecified abdominal pain (principal); K57.30 Diverticulosis of large intestine without perforation or abscess without bleeding; N32.89 Other specified disorders of bladder; K76.89 Other specified diseases of liver; R91.1 Solitary pulmonary nodule; I70.0 Atherosclerosis of aorta; K59.00 Constipation, unspecified; K63.89 Other specified diseases of intestine; M43.27 Fusion of spine, lumbosacral region; M51.369 Other intervertebral disc degeneration, lumbar region without mention of lumbar back pain or lower extremity pain
CPT/HCPCS: 74177; 82565; 84520

== ENCOUNTER → 2025-03-23 10:28 | Outpatient (BNVA) | payer MEDICARE, SELFPAY | PROVIDERS: PCP Family Medicine; Visit Provider Internal Medicine Cardiovascular Disease | DX: R07.9 Chest pain, unspecified (principal); I25.10 Atherosclerotic heart disease of native coronary artery without angina pectoris; I10 Essential (primary) hypertension; I49.3 Ventricular premature depolarization; I45.4 Nonspecific intraventricular block; R94.31 Abnormal electrocardiogram [ECG] [EKG]; I49.9 Cardiac arrhythmia, unspecified; I45.9 Conduction disorder, unspecified | CPT/HCPCS: 36415; 80048; 83735; 93005 ==